=== PATIENT | female | born 1945 | race Hispanic/Latino ===

== ENCOUNTER 2018-10-04 13:37 | Inpatient (IN) | payer MEDICARE ==
[~2018-10-04] VITALS: Ht 154.9 cm; Wt 77.1 kg
[~2018-10-04 13:37] MED LIST: CARVEDILOL3.125 MG PO; CLOPIDOGREL75 MG PO; GABAPENTIN100 MG PO; ISOSORBIDE MONO20 MG PO; LISINOPRIL10 MG PO; METFORMIN HCL1000 MG PO; SIMVASTATIN40 MG PO; TIZANIDINE HCL4 MG PO; XANAX0.25 MG PO; ZOLOFT50 MG PO
--- OUTSIDE RECORDS SUMMARY | 2018-10-04 13:40 | XMS REPORT | Clinical Summary ---
Author Author [employer] Address Unknown Phone Unavailable Care Team Providers Care Manager Data Warehousing Name Role Phone Tang Marvin MD PCP Allergies Comments Active Allergy Reactions Severity Noted Date Sumatriptan Shortness Of High 11/18/2017 Breath Latex Rash Low 11/18/2017 Break Out Nefopam Rash Low 11/19/2017 Chlorzoxazone Rash Low 11/18/2017 Medications End Date Status Medication Sig Dispensed Refills Start Date Active pantoprazole (PROTONIX) Take 40 mg by 0 40 MG EC tablet mouth daily. Active glipiZIDE (GLUCOTROL) 5 Take 5 mg by 0 MG tablet mouth 2 (two) times a day before meals. Active clopidogrel (PLAVIX) 75 Take 75 mg by 0 mg tablet mouth daily. Active carvedilol (COREG) 3.125 Take 3.125 mg 0 MG tablet by mouth 2 (two) times a day with meals. Active lisinopril Take 20 mg by 0 (PRINIVIL,ZESTRIL) 20 mg mouth daily. tablet Active simvastatin (ZOCOR) 10 MG Take 10 mg by 0 tablet mouth nightly. Active insulin detemir (LEVEMIR) Inject 35 0 100 unit/mL injection Units under the skin 2 (two) times a day. 12/19/2017 carvedilol (COREG) 3.125 Take 1 tablet 60 tablet 0 11/19/201 MG tablet (3.125 mg 7 total) by mouth 2 (two) times a day for 30 days. 12/19/2017 glipiZIDE (GLUCOTROL) 5 Take 0.5 30 tablet 0 11/19/201 MG tablet tablets (2.5 7 mg total) by mouth 2 (two) times a day with meals for 30 days. 12/20/2017 lisinopril Take 1 tablet 30 tablet 0 (PRINIVIL,ZESTRIL) 5 mg (5 mg total) 8 tablet by mouth daily for 30 days. 12/20/2017 aspirin (ECOTRIN) 81 MG Take 1 tablet 30 tablet 0 enteric coated tablet (81 mg total) 8 by mouth daily for 30 days. 12/19/2017 clopidogrel (PLAVIX) 75 Take 1 tablet 30 tablet 0 mg tablet (75 mg total) 7 by mouth daily for 30 days. 12/19/2017 simvastatin (ZOCOR) 10 MG Take 1 tablet 30 tablet 0 tablet (10 mg total) 7 by mouth nightly for 30 days. 12/19/2017 clotrimazole (LOTRIMIN) 1 Apply 12 g 1 % cream topically 2 7 (two) times a day for 30 days. 02/03/2018 Discontinued ciprofloxacin (CIPRO) 500 Take 500 mg 0 MG tablet by mouth once. 02/03/2018 Discontinued ondansetron ODT (ZOFRAN Take 1 tablet 12 tablet 0 ODT) 4 MG disintegrating (4 mg total) 8 tablet by mouth every 12 (twelve) hours as needed for nausea or vomiting for up to 30 days. 02/03/2018 Discontinued ibuprofen (ADVIL,MOTRIN) Take 1 tablet 30 tablet 0 600 MG tablet (600 mg 8 total) by mouth every 8 (eight) hours as needed for mild pain for up to 30 days. 02/05/2018 dicyclomine (BENTYL) 20 Take 1 tablet 60 tablet 0 mg tablet (20 mg total) 8 by mouth 2 (two) times a day for 30 days. 03/06/2018 aspirin (ECOTRIN) 325 MG Take 1 tablet 30 tablet 0 enteric coated tablet (325 mg 8 total) by mouth daily for 30 days. Active Problems Problem Noted Date Chest pain 02/01/2018 Hypertensive emergency 11/18/2017 Encounters Care Team Description Date Type Specialty Tito Blanton MD Acute anterior epistaxis (Primary Dx); Hypertension, uncontrolled 04/21/2018 Emergency Emergency Medicine Jorden Jaquez MD [place]ud[place], Rosemary Ogonnaya, MD Chest pain, unspecified type (Primary Dx) 02/01/2018 Emergency General Internal Medicine - 02/03/2018 Kevin Cano Jr., MD Abdominal pain, unspecified abdominal location (Primary Dx) 01/06/2018 Emergency Emergency Medicine Tito Blanton MD Obud[place], Rosemary Ogonnaya, MD Hypertensive emergency (Primary Dx); Unstable angina; Hyperglycemia 11/18/2017 Hospital General Internal Medicine - Encounter 11/19/2017 after 10/03/2017 Immunizations Name Dates Previously Given Next Due FLUCELVAX QUAD PF (0.5mL 11/19/2017 syringe) Family History Medical History Relation Name Comments Heart disease Father Cancer Mother Depression Mother Heart disease Sister Relation Name Status Comments Father Mother Sister Social History Date Tobacco Use Types Packs/Day Years Used Never Smoker Smokeless Tobacco: Never Used Tobacco Cessation: Counseling Given: No Comments: DOESN'T SMOKE Alcohol Use Drinks/Week oz/Week Comments No Drank when she was younger but quit 1994 Sex Assigned at Date Recorded Not on file Industry Job Start Date Occupation Not on file Not on file Not on file Travel End Travel History Travel Start No recent travel history available. Last Filed Vital Signs Time Taken Vital Sign Reading 04/21/2018 3:45 AM CDT Blood Pressure 151/68 04/21/2018 3:45 AM CDT Pulse 56 04/21/2018 3:45 AM CDT Temperature 36.4 C (97.5 F) 04/21/2018 3:45 AM CDT Respiratory Rate 16 04/21/2018 3:45 AM CDT Oxygen Saturation 98% - Inhaled Oxygen - Concentration 04/21/2018 2:20 AM CDT Weight 74.8 kg (165 lb) 04/21/2018 2:20 AM CDT Height 154.9 cm (5' 1") 04/21/2018 2:20 AM CDT Body Mass Index 31.18 Plan of Treatment Health Maintenance Due Date Last Done Comments BREAST CANCER SCREENING 1996 COLON CANCER SCREENING 1996 SHINGRIX VACCINE (1 of 2) 1996 ZOSTER VACCINE 2006 PNEUMOCOCCAL 2011 POLYSACCHARIDE VACCINE AGE 65 AND OVER PNEUMOCOCCAL-13 2011 INFLUENZA VACCINE 06/20/2018 11/19/2017 Implants Device Identifier Shelf Expiration Date Model / Serial / Lot Implanted Type Area Manufactur er Cardiac Pacemakers And Related Cardiac Products Pacemakers and Related Products Procedures Comments Procedure Name Priority Date/Time Associated Diagnosis XR CHEST 1 VW PORTABLE STAT 04/21/2018 3:12 AM CDT ZZESTIMATED GFR STAT 04/21/2018 2:56 AM CDT BASIC METABOLIC PANEL STAT 04/21/2018 2:56 AM CDT PARTIAL THROMBOPLASTIN STAT 04/21/2018 TIME (PTT) 2:56 AM CDT PROTHROMBIN TIME WITH INR STAT 04/21/2018 2:56 AM CDT HC COMPLETE BLD COUNT STAT 04/21/2018 W/AUTO DIFF 2:56 AM CDT D-DIMER STAT 02/03/2018 6:01 PM CDT POC GLUCOSE Routine 02/03/2018 4:23 PM CDT POC GLUCOSE Routine 02/03/2018 10:59 AM CDT POC GLUCOSE Routine 02/03/2018 6:14 AM CDT TROPONIN Timed 02/03/2018 4:34 AM CDT ZZESTIMATED GFR Timed 02/03/2018 4:34 AM CDT THYROID STIMULATING Timed 02/03/2018 HORMONE 4:34 AM CDT T3, FREE Timed 02/03/2018 4:34 AM CDT PROTHROMBIN TIME WITH INR Timed 02/03/2018 4:34 AM CDT PARTIAL THROMBOPLASTIN Timed 02/03/2018 TIME (PTT) 4:34 AM CDT MAGNESIUM LEVEL Timed 02/03/2018 4:34 AM CDT LIPID PANEL Timed 02/03/2018 4:34 AM CDT HEMOGLOBIN A1C Timed 02/03/2018 4:34 AM CDT COMPREHENSIVE METABOLIC Timed 02/03/2018 PANEL 4:34 AM CDT HC COMPLETE BLD COUNT Timed 02/03/2018 W/AUTO DIFF 4:34 AM CDT B NATRIURETIC PEPTIDE Timed 02/03/2018 4:34 AM CDT POC GLUCOSE Routine 02/02/2018 9:04 PM CDT NM MYOCARDIAL PERFUSION Routine 02/02/2018 REST STRESS 1 DAY 6:39 PM CDT CV STRESS TEST NUCLEAR Routine 02/02/2018 CARDIO 6:39 PM CDT POC GLUCOSE Routine 02/02/2018 4:27 PM CDT ECHOCARDIOGRAM 2D Routine 02/02/2018 COMPLETE W MMODE SPECTRAL 12:44 PM CDT COLOR DOPPLER ([id number]) POC GLUCOSE Routine 02/02/2018 11:56 AM CDT TROPONIN Timed 02/02/2018 9:42 AM CDT POC GLUCOSE Routine 02/02/2018 8:13 AM CDT TROPONIN Timed 02/02/2018 3:45 AM CDT ECG 12-LEAD STAT 02/02/2018 3:15 AM CDT XR CHEST 2 VW STAT 02/01/2018 9:55 PM CDT ECG ED PRELIMINARY Routine 02/01/2018 INTERPRETATION 9:08 PM CDT ZZESTIMATED GFR STAT 02/01/2018 9:06 PM CDT B NATRIURETIC PEPTIDE STAT 02/01/2018 9:06 PM CDT TROPONIN STAT 02/01/2018 9:06 PM CDT COMPREHENSIVE METABOLIC STAT 02/01/2018 PANEL 9:06 PM CDT HC COMPLETE BLD COUNT STAT 02/01/2018 W/AUTO DIFF 9:06 PM CDT ECG 12-LEAD STAT 02/01/2018 8:[address] ABDOMEN PELVIS W STAT 01/06/2018 CONTRAST 5:34 AM FIELD SERVICE TECHNICIAN ZZESTIMATED GFR STAT 01/06/2018 3:40 AM FIELD SERVICE TECHNICIAN HC COMPLETE BLD COUNT STAT 01/06/2018 W/AUTO DIFF 3:40 AM FIELD SERVICE TECHNICIAN LIPASE LEVEL STAT 01/06/2018 3:40 AM FIELD SERVICE TECHNICIAN COMPREHENSIVE METABOLIC STAT 01/06/2018 PANEL 3:40 AM FIELD SERVICE TECHNICIAN URINALYSIS SCREEN AND STAT 01/06/2018 MICROSCOPY, WITH REFLEX 3:30 AM FIELD SERVICE TECHNICIAN TO CULTURE URINE CULTURE STAT 01/06/2018 3:05 AM FIELD SERVICE TECHNICIAN POC GLUCOSE Routine 11/19/2017 4:47 PM FIELD SERVICE TECHNICIAN POC GLUCOSE Routine 11/19/2017 11:17 AM FIELD SERVICE TECHNICIAN POC GLUCOSE Routine 11/19/2017 7:26 AM FIELD SERVICE TECHNICIAN ZZESTIMATED GFR Timed 11/19/2017 7:04 AM FIELD SERVICE TECHNICIAN COMPREHENSIVE METABOLIC Timed 11/19/2017 PANEL 7:04 AM FIELD SERVICE TECHNICIAN HC COMPLETE BLD COUNT Timed 11/19/2017 W/AUTO DIFF 7:04 AM FIELD SERVICE TECHNICIAN TROPONIN Timed 11/19/2017 7:04 AM FIELD SERVICE TECHNICIAN ECG 12-LEAD Routine 11/19/2017 6:11 AM FIELD SERVICE TECHNICIAN TROPONIN Timed 11/19/2017 1:56 AM FIELD SERVICE TECHNICIAN ECG 12-LEAD Routine 11/18/2017 11:22 PM FIELD SERVICE TECHNICIAN TROPONIN Timed 11/18/2017 8:50 PM FIELD SERVICE TECHNICIAN ECG ED PRELIMINARY Routine 11/18/2017 INTERPRETATION 8:27 PM FIELD SERVICE TECHNICIAN ECG 12-LEAD Routine 11/18/2017 7:41 PM FIELD SERVICE TECHNICIAN ECHOCARDIOGRAM 2D Routine 11/18/2017 COMPLETE W MMODE SPECTRAL 5:17 PM FIELD SERVICE TECHNICIAN COLOR DOPPLER ([id number]) POC GLUCOSE Routine 11/18/2017 4:35 PM FIELD SERVICE TECHNICIAN POC GLUCOSE Routine 11/18/2017 11:31 AM FIELD SERVICE TECHNICIAN POC GLUCOSE Routine 11/18/2017 7:13 AM FIELD SERVICE TECHNICIAN LIPID PANEL Routine 11/18/2017 6:00 AM FIELD SERVICE TECHNICIAN TROPONIN Timed 11/18/2017 6:00 AM FIELD SERVICE TECHNICIAN POC GLUCOSE Routine 11/18/2017 5:13 AM FIELD SERVICE TECHNICIAN CT ANGIOGRAM CHEST STAT 11/18/2017 ABDOMEN PELVIS W AND OR 3:36 AM FIELD SERVICE TECHNICIAN WITHOUT CONTRAST CT HEAD WO CONTRAST STAT 11/18/2017 3:23 AM FIELD SERVICE TECHNICIAN XR CHEST 2 VW STAT 11/18/2017 1:17 AM FIELD SERVICE TECHNICIAN HEMOGLOBIN A1C Routine 11/18/2017 1:07 AM FIELD SERVICE TECHNICIAN ZZESTIMATED GFR STAT 11/18/2017 1:07 AM FIELD SERVICE TECHNICIAN B NATRIURETIC PEPTIDE STAT 11/18/2017 1:07 AM FIELD SERVICE TECHNICIAN TROPONIN STAT 11/18/2017 1:07 AM FIELD SERVICE TECHNICIAN CREATINE KINASE, TOTAL STAT 11/18/2017 (CPK) 1:07 AM FIELD SERVICE TECHNICIAN COMPREHENSIVE METABOLIC STAT 11/18/2017 PANEL 1:07 AM FIELD SERVICE TECHNICIAN PROTHROMBIN TIME WITH INR STAT 11/18/2017 1:07 AM FIELD SERVICE TECHNICIAN HC COMPLETE BLD COUNT STAT 11/18/2017 W/AUTO DIFF 1:07 AM FIELD SERVICE TECHNICIAN ECG 12-LEAD STAT 11/18/2017 12:14 AM FIELD SERVICE TECHNICIAN after 10/03/2017 Results * XR Chest 1 Vw Portable (04/21/2018 3:12 AM CDT) Narrative Performed At Examination:XR CHEST 1 VW PORTABLE RADIANT Clinical History:SHORTNESS OF BREATH Comparison: None. Technique: Single frontal view of the chest is obtained. Findings: The lungs are free of infiltrate. The heart size is in the upper limits of normal. No pleural effusion is seen. Left transvenous visit device is stable. No pneumothorax is seen. Impression: No active cardiopulmonary disease identified. [facility]-[id number] Procedure Note Hm Interface, Radiology Results Incoming - 04/21/2018 3:17 AM CDT Examination: XR CHEST 1 VW PORTABLE Clinical History: SHORTNESS OF BREATH Comparison: None. Technique: Single frontal view of the chest is obtained. Findings: The lungs are free of infiltrate. The heart size is in the upper limits of normal. No pleural effusion is seen. Left transvenous visit device is stable. No pneumothorax is seen. Impression: No active cardiopulmonary disease identified. [facility]-[id number] Performing Organization Address City/[facility] Phone Number [facility] [address] [place] [address] * Estimated GFR (04/21/2018 2:56 AM CDT) Only the most recent of 6 results within the time period is included. GFR Non Af Amer 49 (A) mL/min/1.73 m2 [facility] DEPARTMENT OF PATHOLOGY AND GENOMIC MEDICINE GFR Af Amer 59 (A) mL/min/1.73 m2 [facility] DEPARTMENT OF Comment: PATHOLOGY AND Chronic kidney disease: <60 GENOMIC MEDICINE mL/min/1.73m2 Kidney failure: <15 mL/min/1.73m2 The estimated GFR is calculated from the IDMS-traceable Modification of Diet in Renal Disease Equation. The accuracy of the calculation is poor when the creatinine is normal. Calculated values >90 mL/min/1.73m2 are not reported. This equation has not been validated in children (<18 years), women, the elderly (>70 years), or ethnic groups other than Caucasians and Americans. Specimen Plasma specimen Performing Organization Address City/[facility] [place] [address] PATHOLOGY AND [facility] * Partial thromboplastin time, activated (04/21/2018 2:56 AM CDT) Only the most recent of 2 results within the time period is included. PTT 28.0 23.0 - 36.0 sec [facility] DEPARTMENT OF Comment: PATHOLOGY AND PTT therapeutic range for GENOMIC MEDICINE unfractionated heparin is 61.0-112.0 seconds which corresponds to Anti-Xa 0.3-0.7 U/ml. Note:Change in Panic Value The PTT Panic Value is changing from 110 sec. to 100 sec. due to new instrumentation and reagents. Correlation studies have been performed to validate this result. Specimen Blood Performing Organization Address [facility] [place] [address] PATHOLOGY AND [facility] * Prothrombin time with INR (04/21/2018 2:56 AM CDT) Only the most recent of 3 results within the time period is included. Prothrombin time 12.3 12.0 - 15.0 sec [facility] DEPARTMENT OF PATHOLOGY AND [facility] INR 0.91 (L) 0.92 - 1.12 [facility] DEPARTMENT OF Comment: PATHOLOGY AND For patients on anticoagulant GENOMIC MEDICINE therapy, reference ranges below: Indication: INR Value Treatment of Venous Thrombosis, 2.0-3.0 pulmonary emboli, or prophylaxis of a venous thrombosis, or systemic emboli. High dose, high risk patients 3.0-4.5 with mechanical valves. NOTE:INR values over 3.0 are sometimes associated with gastrointestinal hemorrhage, especially values over 4.0. Specimen Blood Performing Organization Address City/[facility] [place] [address] PATHOLOGY AND [facility] * CBC with platelet and differential (04/21/2018 2:56 AM CDT) Only the most recent of 6 results within the time period is included. WBC 8.5 4.2 - 11.0 k/uL [facility] DEPARTMENT OF PATHOLOGY AND GENOMIC MEDICINE RBC 4.30 4.04 - 5.86 m/uL [facility] DEPARTMENT OF PATHOLOGY AND GENOMIC MEDICINE HGB 12.9 11.5 - 15.3 g/dL [facility] DEPARTMENT OF PATHOLOGY AND GENOMIC MEDICINE HCT 37.8 34.0 - 45.0 % [facility] DEPARTMENT OF PATHOLOGY AND GENOMIC MEDICINE MCV 87.9 80.0 - 98.0 fL [facility] DEPARTMENT OF PATHOLOGY AND GENOMIC MEDICINE MCH 30.0 27.0 - 34.0 pg [facility] DEPARTMENT OF PATHOLOGY AND GENOMIC MEDICINE MCHC 34.1 31.5 - 36.5 g/dL [facility] DEPARTMENT OF PATHOLOGY AND GENOMIC MEDICINE RDW - SD 39.0 37.0 - 51.0 fL [facility] DEPARTMENT OF PATHOLOGY AND GENOMIC MEDICINE MPV 10.9 (H) 7.4 - 10.4 fL [facility] DEPARTMENT OF PATHOLOGY AND GENOMIC MEDICINE Platelet count 278 150 - 400 k/uL [facility] DEPARTMENT OF PATHOLOGY AND GENOMIC MEDICINE Nucleated RBC 0.00 /100 WBC [facility] DEPARTMENT OF PATHOLOGY AND GENOMIC MEDICINE Neutrophils 66.4 (H) 36.0 - 66.0 % [facility] DEPARTMENT OF PATHOLOGY AND GENOMIC MEDICINE Lymphocytes 23.7 (L) 24.0 - 44.0 % [facility] DEPARTMENT OF PATHOLOGY AND GENOMIC MEDICINE Monocytes 6.8 (H) 0.0 - 6.0 % [facility] DEPARTMENT OF PATHOLOGY AND GENOMIC MEDICINE Eosinophils 2.1 0.0 - 6.0 % [facility] DEPARTMENT OF PATHOLOGY AND GENOMIC MEDICINE Basophils 0.8 0.0 - 1.2 % [facility] DEPARTMENT OF PATHOLOGY AND GENOMIC MEDICINE Immature granulocytes 0.2 0.0 - 1.0 % [facility] DEPARTMENT OF PATHOLOGY AND GENOMIC MEDICINE Specimen Blood Performing Organization Address City/State/Zipcode Phone Number [place] [address] [place] [address] PATHOLOGY AND GENOMIC MEDICINE * Basic metabolic panel (04/21/2018 2:56 AM CDT) Sodium 132 (L) 135 - 150 mEq/L [facility] DEPARTMENT OF PATHOLOGY AND GENOMIC MEDICINE Potassium 4.2 3.5 - 5.0 mEq/L [facility] DEPARTMENT OF PATHOLOGY AND GENOMIC MEDICINE Chloride 97 (L) 100 - 109 mEq/L [facility] DEPARTMENT OF PATHOLOGY AND GENOMIC MEDICINE CO2 25 24 - 32 mmol/L [facility] DEPARTMENT OF PATHOLOGY AND GENOMIC MEDICINE Anion gap 10@ANIO 7 - 15 mEq/L [facility] DEPARTMENT OF PATHOLOGY AND GENOMIC MEDICINE BUN 24 (H) 7 - 18 mg/dL [facility] DEPARTMENT OF PATHOLOGY AND GENOMIC MEDICINE Creatinine 1.1 0.8 - 1.5 mg/dL [facility] DEPARTMENT OF PATHOLOGY AND GENOMIC MEDICINE Glucose 453 (HH) 65 - 100 mg/dL [facility] DEPARTMENT OF Comment: PATHOLOGY AND Results called to and read [facility] back by MARCELINA BAIG RN ER AT 03:[id number] BY BALWINDER. Calcium 8.8 8.6 - 10.7 mg/dL [facility] DEPARTMENT OF PATHOLOGY AND GENOMIC MEDICINE Specimen Plasma specimen Performing Organization Address [facility] Phone Number [facility] [address] [place] [address] PATHOLOGY AND GENOMIC MEDICINE * D-dimer (02/03/2018 6:01 PM CDT) D-dimer 0.36 0.00 - 0.40 ug/mL FEU [facility] DEPARTMENT OF Comment: PATHOLOGY AND Units are ug/ml [facility] Equivalent Unit. When combined with low clinical probability, D-dimer results of less than 0.5 ug/ml FEU have a good negativepredictive value in excluding PE or DVT. For D-dimer results greater than 0.5ug/ml FEU further testing is indicated if PE or DVT is suspectedclinically. Elevated D-dimer results have been reported in DVT, PE, and DIC cases and may indicate the presence of a clot. D-dimer results may be elevated due to old age, , inflammatory diseases, trauma, post-operative states, sepsis, and malignancies. Specimen Blood Performing Organization Address [facility] Phone Number [facility] [address] [place] [address] PATHOLOGY AND GENOMIC MEDICINE * POC glucose (02/03/2018 4:23 PM CDT) Only the most recent of 14 results within the time period is included. POC glucose 174 (H) 65 - 100 mg/dL [facility] DEPARTMENT OF Comment: PATHOLOGY AND Meter ID: [id number] GENOMIC MEDICINE Model And Mold Maker Plaster: Jenifer Sanchez Performing Organization Address City/State/Zipcode Phone Number [facility] DEPARTMENT OF [address] [place] [address] PATHOLOGY AND [facility] * Troponin (02/03/2018 4:34 AM CDT) Only the most recent of 9 results within the time period is included. Troponin <0.01 0.00 - 0.60 ng/mL [facility] DEPARTMENT OF Comment: PATHOLOGY AND 0.11 - 1.49 GENOMIC MEDICINE ng/mlMay indicate increased risk of acute coronary syndrome. >=1.5 ng/ml Consistent with acute myocardial infarction. The diagnostic value of a single normal or non-diagnostic result is questionable.Serial samples at 2-6 hour intervals are required to rule out acute myocardial injury. Specimen Plasma specimen Performing Organization Address City/[facility] [place] [address] PATHOLOGY AND GENOMIC MEDICINE * T3, free (02/03/2018 4:34 AM CDT) T3, free 2.55 2.18 - 3.98 pmol/L [facility] PATHOLOGY AND [facility] Specimen Plasma specimen Performing Organization Address [facility] [place] [address] PATHOLOGY AND [facility] * Thyroid stimulating hormone (02/03/2018 4:34 AM CDT) TSH 0.96 0.38 - 4.82 uIU/mL [facility] PATHOLOGY AND [facility] Specimen Plasma specimen Performing Organization Address [facility] [address] PATHOLOGY AND [facility] * B natriuretic peptide (02/03/2018 4:34 AM CDT) Only the most recent of 3 results within the time period is included. BNP 28 0 - 100 pg/mL [facility] OF PATHOLOGY AND GENOMIC MEDICINE Specimen Blood Performing Organization Address [facility] [place] [address] PATHOLOGY AND [facility] * Magnesium level (02/03/2018 4:34 AM CDT) Magnesium 1.90 1.60 - 2.40 mg/dL [facility] PATHOLOGY AND [facility]ICINE Specimen Plasma specimen Performing Organization Address [facility] [place] [address] PATHOLOGY AND [facility] * Hemoglobin A1c (02/03/2018 4:34 AM CDT) Only the most recent of 2 results within the time period is included. Hemoglobin A1C 10.2 (H) 4.0 - 6.0 % [facility] DEPARTMENT OF Comment: PATHOLOGY AND [facility] Less than 6% - Goal of therapy for Type II Diabetes Less than 7%-Goal of therapy for Type I Diabetes Less than 8%-Accepta ble control for Type I or Type II Diabetes Greater than 8%-Unacceptabl e control; action indicated. ([id number]) Specimen Blood Performing Organization Address City/[facility]/Zipcode Phone Number [facility] [address] [place] [address] PATHOLOGY AND [facility] * Lipid panel (02/03/2018 4:34 AM CDT) Only the most recent of 2 results within the time period is included. Cholesterol 194 120 - 200 mg/dL [facility] DEPARTMENT OF PATHOLOGY AND [facility] Triglycerides 131 50 - 150 mg/dL [facility] DEPARTMENT OF PATHOLOGY AND [facility] HDL cholesterol 78 (H) 40 - 60 mg/dL [facility] OF PATHOLOGY AND [facility]IC[facility] LDL cholesterol 108Comment: Result obtained by mg/dL [facility] DEPARTMENT OF direct LDL measurement [facility] AND [facility] Specimen Plasma specimen Performing Organization Address City/[facility] [place] [address] PATHOLOGY AND [facility] * Comprehensive metabolic panel (02/03/2018 4:34 AM CDT) Only the most recent of 5 results within the time period is included. Sodium 138 135 - 150 mEq/L [facility] DEPARTMENT OF PATHOLOGY AND [facility]IC[facility] Potassium 4.1 3.5 - 5.0 mEq/L [facility] DEPARTMENT OF PATHOLOGY AND [facility] Chloride 104 100 - 109 mEq/L [facility] DEPARTMENT OF PATHOLOGY AND [facility] CO2 26 24 - 32 mmol/L [facility] DEPARTMENT OF PATHOLOGY AND [facility] Anion gap 8 7 - 15 mEq/L [facility] DEPARTMENT OF Comment: PATHOLOGY AND Starting from February [facility] , anion gap calculation no longer incorporates potassium. Please note the change. BUN 19 (H) 7 - 18 mg/dL [facility] DEPARTMENT OF PATHOLOGY AND [facility] Creatinine 0.7 (L) 0.8 - 1.5 mg/dL [facility] DEPARTMENT OF PATHOLOGY AND [facility] Glucose 154 (H) 65 - 100 mg/dL [facility] DEPARTMENT OF PATHOLOGY AND GENOMIC MEDICINE Calcium 9.0 8.6 - 10.7 mg/dL [facility] DEPARTMENT OF PATHOLOGY AND GENOMIC MEDICINE Protein 6.8 6.3 - 8.2 g/dL [facility] DEPARTMENT OF PATHOLOGY AND GENOMIC MEDICINE Albumin 3.2 3.2 - 5.0 g/dL [facility] DEPARTMENT OF PATHOLOGY AND GENOMIC MEDICINE A/G ratio 0.9 0.7 - 3.8 [facility] DEPARTMENT OF PATHOLOGY AND GENOMIC MEDICINE Alkaline phosphatase 137 (H) 30 - 120 U/L [facility] DEPARTMENT OF PATHOLOGY AND GENOMIC MEDICINE AST 12 (L) 15 - 37 U/L [facility] DEPARTMENT OF PATHOLOGY AND GENOMIC MEDICINE ALT 25 (L) 30 - 65 U/L [facility] DEPARTMENT OF PATHOLOGY AND GENOMIC MEDICINE Total bilirubin 0.4 0.2 - 1.2 mg/dL [facility] DEPARTMENT OF PATHOLOGY AND GENOMIC MEDICINE Specimen Plasma specimen Performing Organization Address City/[facility] Phone Number [place] [address] [place] [address] PATHOLOGY AND GENOMIC MEDICINE * CV stress test (02/02/2018 6:39 PM CDT) Resting HR 62 [facility] Resting BP 127 [facility] Peak MET Achieved 1.0 [facility] Protocol Name KELVIN [facility] Time in Exercise Phase 00:01:07 [facility] Max Systolic BP 184 [facility] Max Diastolic BP 79 [facility] Max Heart Rate 86 [facility] Max Predicted Heart Rate 149 [facility] Target HR Formula (220 - Age)*100% [facility] Test Indication Syncope [facility] Arrhy During Ex none [facility] ECG Interp Before EX Normal [facility] ECG Interp During Ex none [facility] Ex Summary Comment Normal stress test [facility] Chest Pain Statement none [facility] Overall HR Response to appropriate [facility] Exercise Overall BP Response To normal resting BP - [facility] Exercise appropriate response Reason for Termination Protocol completed [facility] Stress Test Impression - Performing Organization Address City/State/[facility] Phone Number [facility] [address] [place] [address] * Myocardial perfusion (02/02/2018 6:39 PM CDT) Target HR 126.65 bpm [facility] Resting HR 62 BPM [facility] Resting BP 127/56 mmHg [facility] Post peak HR 86 bpm [facility] Percent HR 67.90 % [facility] Post peak BP 184/79 mmHg [facility] Exercise duration (min) 2 min [facility] Estimated workload 1.0 METS [facility] Narrative Performed At [facility] Probably normal left ventricular perfusion. Probably normal left ventricular perfusion. No chest pain No exercise induced ST-T changes. No arrhythmias with exercise. Normal heart rate and BP response. Myoview report Breastattenuation artifact No conclusive significant large reversible Ischemia Normal wall motion EF 70% Performing Organization Address City/State/Zipcode Phone Number [facility] [address] [place] [address] * Echocardiogram complete w contrast and 3D if needed (02/02/2018 12:44 PM CDT) Velocity Ratio (V1/V2) 0.77 m/s [facility] IVS,d 0.83 0.6 - 1.2 cm [facility] EF 65.65 % [facility] LVPWD,d 0.79 cm [facility] AoV Mean PG 4.86 mmHg [facility] AV LVOT peak gradient 4.85 mmHg [facility] MV mean gradient 2.06 mmHg [facility] MV valve area p 1/2 3.52 cm2 [facility] method PV Pk Grad 6.54 mmHg [facility] E/A ratio 1.23 [facility] E wave decelartion time 215.55 msec [facility] LVOT Diam,S 1.88 cm [facility] LVOT area 2.77 cm2 [facility] LVOT Vmax 1.20 m/s [facility] LVOT VTI 0.26 m [facility] AoV Peak PG 8.52 mmHg [facility] MV Peak E Joel 1.03 m/s [facility] MV stenosis pressure 1/2 62.51 ms [facility] time MV Peak A Joel 0.84 m/s [facility] Ao Root Diameter 2.59 cm [facility] AoV Area, Vmax 2.09 cm2 [facility] AoV Area, VTI 2.15 cm2 [facility] AoV Vmax 1.56 m/s [facility] IVS/LVPW,2D 1.06 [facility] Left Atrium Dimension 3.00 cm [facility] Anterior LV,d 4.64 cm [facility] LV,s 2.97 cm [facility] PV VMAX 1.28 m/s [facility] TR Vpeak 2.83 mm/s [facility] MV E A ratio 1.22 mmHg [facility] TR pk grad 32.01 mmHg [facility] MR peak grad 4.33 mmHg [facility] Ao Root Diameter 2.59 cm [facility] LV SYS VOL 34.10 ml [facility] LV HERNANDEZ VOL 99.27 ml [facility] LV SV Teich 2D 65.17 ml [facility] LV Vol s Teich PSAX 34.10 ml [facility] LVOT CO 4.50 l/min [facility] LVOT HR for LVOT CO 62.75 bpm [facility] MV Vmax 1.04 m [facility] MV VTI Tips 0.32 m [facility] AoV Vmn 1.05 [facility] IVS s 2D 1.24 [facility] LV FS Cube 2D 36.01 [facility] LV FS Teich 2D 36.01 [facility] AoV VTI 0.33 m [facility] LV EF,2D 73.80 % [facility] MV AE ratio 0.82 [facility] LVOT Vmn 0.81 [facility] Aov area Vmn 2.14 cm2 [facility] LVOT mean grad 2.82 mmHg [facility] MAX Pred HR 148.73 [facility] 85 of MPHR 126.42 [facility] Calc MPHR 148.73 bpm [facility] IVS pct thck PLAX 48.96 % [facility] LV SV Cube 2D 73.66 ml [facility] LV vol d cube 2D 99.81 ml [facility] LV vol s cube 2D 26.15 ml [facility] LVPW pct thck PLAX 131.74 % [facility] LVPW s PLAX 1.83 cm [facility] MV Decel slope 4.77 m/s2 [facility] Pred Exer Dur R1 6.69 [facility] Pred METS R1 5.44 [facility] Narrative Performed At [facility] The left ventricle chamber size is normal. Left Ventricular ejection fraction is 60 - 65%. Right ventricular size is normal. The mitral valve appears thickened. The anterior leaflet is mild thickened and/or calcified. There is a mild prolapse of the mitral valve. Trace mitral valve regurgitation Performing Organization Address City/State/Zipcode Phone Number [facility] [address] [place] [address] * ECG 12 lead (02/02/2018 3:15 AM CDT) Only the most recent of 6 results within the time period is included. Ventricular rate 54 [facility] Atrial rate 54 [facility] IA interval 138 [facility] QRSD interval 108 [facility] QT interval 482 [facility] QTC interval 457 [facility] P axis 1 54 [facility] QRS axis 1 54 [facility] T wave axis 24 [facility] EKG impression atrial-sensed [facility] ventricular-paced complexes-Prolonged QT-In automated comparison with ECG of 01-FEB-2018 20:43,-Electronic ventricular pacemaker has replaced Sinus rhythm-Vent. rate has decreased BY26 BPM- Performing Organization Address [facility] Phone Number [facility] [address] [place] [address] * XR Chest 2 Vw (02/01/2018 9:55 PM CDT) Only the most recent of 2 results within the time period is included. Narrative Performed At EXAMINATION:XR CHEST 2 VW [facility] CLINICAL HISTORY:Chest Pain COMPARISON:11/18/2017 IMPRESSION: Cardiomediastinal silhouette is within normal limits. Left-sided cardiac device is in place. No consolidations, effusions, or pneumothorax. No acute osseous abnormalities. [facility]-[id number] Procedure Note Hm Interface, Radiology Results Incoming - 02/01/2018 10:01 PM CDT EXAMINATION: XR CHEST 2 VW CLINICAL HISTORY: Chest Pain COMPARISON: 11/18/2017 IMPRESSION: Cardiomediastinal silhouette is within normal limits. Left-sided cardiac device is in place. No consolidations, effusions, or pneumothorax. No acute osseous abnormalities. [facility]-[id number] Performing Organization Address [facility] Phone Number [facility] [address] [place] [address] * ECG ED Preliminary Interpretation - NOT AN ORDER (02/01/2018 9:08 PM CDT) Only the most recent of 2 results within the time period is included. Narrative Performed At Jorden Jaquez MD 02/01/2018 10:09 PM ECG ED Preliminary Interpretation - Not an Order Performed by: JORDEN JAQUEZ Authorized by: JORDEN JAQUEZ ECG reviewed by ED Physician in the absence of a vp celebrity services: yes Interpretation: Interpretation: abnormal Rate: ECG rate:80 ECG rate assessment: normal Rhythm: Rhythm: sinus rhythm Ectopy: Ectopy: PVCs PVCs:Frequent QRS: QRS axis:Normal QRS intervals:Normal Conduction: Conduction: normal ST segments: ST segments:Normal T waves: T waves: normal Other findings: Other findings comment:Demand pacemaker with paced beats * CT Abdomen Pelvis W Contrast (01/06/2018 5:34 AM FIELD SERVICE TECHNICIAN) Narrative Performed At EXAMINATION:CT ABDOMEN PELVIS W CONTRAST [facility] CLINICAL HISTORY:abd pain TECHNIQUE: Multiple axial images of the abdomen and pelvis were obtained following intravenous administration of iodinated contrast. Sagittal and coronal computerized reformatted images were also obtained. CT imaging was performed with iterative reconstruction technique and/or automated exposure control to reduce radiation dose. COMPARISON:11/18/2017 IMPRESSION: In the right lower lobe, there is a 3 mm nodule. Lead from cardiac device terminates in the right heart. Patient is status post cholecystectomy. Liver demonstrates focal fatty infiltration along the falciform ligament. Spleen, pancreas, adrenal glands are normal. Simple cyst is seen of interpolar region of the right kidney. Left kidney is normal. No hydronephrosis or hydroureter. Bladder is normal. No free intraperitoneal fluid or air. Atherosclerotic vascular calcifications are seen. Diverticulosis is seen without diverticulitis. Appendix is normal. No gastrointestinal tract obstruction. No acute osseous abnormalities. CONCLUSION: No emergent findings. [facility]-[id number] Procedure Note Interface, Radiology Results Incoming - 01/06/2018 6:07 AM FIELD SERVICE TECHNICIAN EXAMINATION: CT ABDOMEN PELVIS W CONTRAST CLINICAL HISTORY: abd pain TECHNIQUE: Multiple axial images of the abdomen and pelvis were obtained following intravenous administration of iodinated contrast. Sagittal and coronal computerized reformatted images were also obtained. CT imaging was performed with iterative reconstruction technique and/or automated exposure control to reduce radiation dose. COMPARISON: 11/18/2017 IMPRESSION: In the right lower lobe, there is a 3 mm nodule. Lead from cardiac device terminates in the right heart. Patient is status post cholecystectomy. Liver demonstrates focal fatty infiltration along the falciform ligament. Spleen, pancreas, adrenal glands are normal. Simple cyst is seen of interpolar region of the right kidney. Left kidney is normal. No hydronephrosis or hydroureter. Bladder is normal. No free intraperitoneal fluid or air. Atherosclerotic vascular calcifications are seen. Diverticulosis is seen without diverticulitis. Appendix is normal. No gastrointestinal tract obstruction. No acute osseous abnormalities. CONCLUSION: No emergent findings. [facility]-[id number] Performing Organization Address City/State/Zipcode Phone Number [facility] [address] [place] [address] * Lipase level (01/06/2018 3:40 AM FIELD SERVICE TECHNICIAN) Lipase 121 65 - 230 U/L [facility] DEPARTMENT OF PATHOLOGY AND GENOMIC MEDICINE Specimen Plasma specimen Performing Organization Address City/[facility] Phone Number [address] [place] [address] PATHOLOGY AND GENOMIC MEDICINE * Urinalysis screen and microscopy, with reflex to culture (01/06/2018 3:30 AM FIELD SERVICE TECHNICIAN) Specimen site Clean catch [facility] DEPARTMENT OF PATHOLOGY AND GENOMIC MEDICINE Color, UA Yellow [facility] DEPARTMENT OF PATHOLOGY AND GENOMIC MEDICINE Appearance, UA Clear [facility] DEPARTMENT OF PATHOLOGY AND GENOMIC MEDICINE Specific gravity, UA 1.021 1.001 - 1.035 [facility] DEPARTMENT OF PATHOLOGY AND GENOMIC MEDICINE pH, UA 5.0 5.0 - 8.5 [facility] DEPARTMENT OF PATHOLOGY AND GENOMIC MEDICINE Protein, UA Negative Negative [facility] DEPARTMENT OF PATHOLOGY AND GENOMIC MEDICINE Glucose, UA Negative Negative [facility] DEPARTMENT OF PATHOLOGY AND GENOMIC MEDICINE Ketones, UA Negative Negative [facility] DEPARTMENT OF PATHOLOGY AND GENOMIC MEDICINE Bilirubin, UA Negative Negative [facility] DEPARTMENT OF PATHOLOGY AND GENOMIC MEDICINE Blood, UA Negative Negative [facility] DEPARTMENT OF PATHOLOGY AND GENOMIC MEDICINE Nitrite, UA Negative Negative [facility] DEPARTMENT OF PATHOLOGY AND GENOMIC MEDICINE Urobilinogen, UA Negative <2.0 [facility] DEPARTMENT OF PATHOLOGY AND GENOMIC MEDICINE Leukocyte esterase, UA Negative Negative [facility] DEPARTMENT OF PATHOLOGY AND GENOMIC MEDICINE Epithelial cells, UA Few /HPF [facility] DEPARTMENT OF PATHOLOGY AND GENOMIC MEDICINE WBC, UA 3 0 - 5 /HPF [facility] DEPARTMENT OF PATHOLOGY AND GENOMIC MEDICINE RBC, UA 1 0 - 5 /HPF [facility] DEPARTMENT OF PATHOLOGY AND GENOMIC MEDICINE Bacteria, UA None seen None seen [facility] DEPARTMENT OF PATHOLOGY AND GENOMIC MEDICINE Yeast, UA None seen [facility] DEPARTMENT OF PATHOLOGY AND GENOMIC MEDICINE Yeast with pseudohyphae, None seen [facility] DEPARTMENT OF PATHOLOGY AND GENOMIC MEDICINE Specimen Urine Performing Organization Address City/[facility]/Zipcode Phone Number [facility] [address] [facility] [place] [address] PATHOLOGY AND GENOMIC MEDICINE * Urine culture (01/06/2018 3:05 AM FIELD SERVICE TECHNICIAN) Urine culture SEE COMMENTComment: [facility] DEPARTMENT OF Bacteriuria screen negative. PATHOLOGY AND GENOMIC MEDICINE Performing Organization Address City/State/Zipcode Phone Number [facility] DEPARTMENT OF [address] [place] [address] PATHOLOGY AND GENOMIC MEDICINE * Echocardiogram complete w contrast and 3D if needed (11/18/2017 5:17 PM FIELD SERVICE TECHNICIAN) Velocity Ratio (V1/V2) 0.64 m/s [facility] IVS,d 1.30 (A) 0.6 - 1.2 cm [facility] EF 54.69 % [facility] LVPWD,d 1.17 cm [facility] AoV Mean PG 3.74 mmHg [facility] AV LVOT peak gradient 2.81 mmHg [facility] MV valve area p 1/2 5.32 cm2 [facility] method PV Pk Grad 3.70 mmHg [facility] E/A ratio 0.86 [facility] E wave decelartion time 172.25 msec [facility] LVOT Diam,S 1.82 cm [facility] LVOT area 2.60 cm2 [facility] LVOT Vmax 0.84 m/s [facility] LVOT VTI 0.19 m [facility] AoV Peak PG 7.01 mmHg [facility] MV Peak E Joel 0.62 m/s [facility] MV stenosis pressure 1/2 41.38 ms [facility] time MV Peak A Joel 0.72 m/s [facility] Ao Root Diameter 2.63 cm [facility] AoV Area, Vmax 1.66 cm2 [facility] AoV Area, VTI 1.75 cm2 [facility] AoV Vmax 1.32 m/s [facility] IVS/LVPW,2D 1.11 [facility] Left Atrium Dimension 2.55 cm [facility] Anterior LV,d 4.31 cm [facility] LV,s 3.10 cm [facility] PV VMAX 0.96 m/s [facility] RVSP (TR) 33.62 mmHg [facility] TR Vpeak 2.43 mm/s [facility] MV E A ratio 0.86 mmHg [facility] TR pk grad 23.62 mmHg [facility] RVSP 33.62 mmHg [facility] Ao Root Diameter 2.63 cm [facility] LV SYS VOL 37.82 ml [facility] LV HERNANDEZ VOL 83.47 ml [facility] LV SV Teich 2D 45.65 ml [facility] LV Vol s Teich PSAX 37.82 ml [facility] LVOT CO 2.97 l/min [facility] LVOT HR for LVOT CO 59.49 bpm [facility] AoV Vmn 0.92 [facility] IVS s 2D 1.29 [facility] LV FS Cube 2D 28.13 [facility] LV FS Teich 2D 28.13 [facility] AoV VTI 0.28 m [facility] LV EF,2D 62.87 % [facility] MV AE ratio 1.17 [facility] LVOT Vmn 0.57 [facility] Aov area Vmn 1.61 cm2 [facility] LVOT mean grad 1.44 mmHg [facility] MAX Pred HR 148.94 [facility] 85 of MPHR 126.60 [facility] Calc MPHR 148.94 bpm [facility] IVS pct thck PLAX -0.52 % [facility] LV SV Cube 2D 50.30 ml [facility] LV vol d cube 2D 80.00 ml [facility] LV vol s cube 2D 29.70 ml [facility] LVPW pct thck PLAX 26.23 % [facility] LVPW s PLAX 1.48 cm [facility] MV Decel slope 3.59 m/s2 [facility] Pred Exer Dur R1 6.71 [facility] Pred METS R1 5.46 [facility] Narrative Performed At [facility] Left Ventricular ejection fraction is 50 - 55%. There is mild left ventricular concentric hypertrophy. Right ventricular size is normal. Left atrium size is mildly dilated. No pericardial effusion Trace mitral valve regurgitation The mitral valve appears thickened. There is moderate sclerosis of the aortic valve leaflets. Spectral Doppler shows impaired relaxation pattern of left ventricular diastolic filling. Performing Organization Address City/State/Zipcode Phone Number [facility] [address] [place] [address] * CT Angiogram Chest W Contrast Abdomen W Contrast Pelvis W Contrast (11/18/2017 3:36 AM FIELD SERVICE TECHNICIAN) Narrative Performed At EXAMINATION:CT ANGIOGRAM CHEST ABDOMEN PELVIS W AND OR WITHOUT CONTRAST [facility] CLINICAL HISTORY:chest pain to back left armleg paresthesias TECHNIQUE: Multiple CT angiographic images of the chest, abdomen, and pelvis were obtained during intravenous administration of contrast. Multiple computerized reformatted images as well as 3-D volume rendered images were also obtained. CT imaging was performed with iterative reconstruction technique and/or automated exposure control to reduce radiation dose. COMPARISON:04/01/2015 FINDINGS: CTA: No large main branch, saddle region, or proximal segmental filling defects are seen to suggest pulmonary artery bolus. No aortic aneurysm, dissection, or pseudoaneurysm. Ascending aorta at the root measures 2.5 cm. Mid ascending aorta measures 2.5 cm. Aortic arch measures 2.3 cm. Proximal descending thoracic aorta measures 2 cm. Aorta at the diaphragmatic hiatus measures 1.9 cm. Suprarenal abdominal aorta measures 1.7 cm. Infrarenal abdominal aorta measures 1 cm. Scattered atherosclerotic plaque and calcification is seen of the aorta, most prominent of the infrarenal abdominal aorta. Major branches of the aortic arch are normal. Celiac artery and major branches are normal. Mild atherosclerotic plaque is seen at the origin of the superior mesenteric artery. Major branches are normal. Inferior mesenteric artery and major branches are normal. Mild atherosclerotic plaque and calcification is seen of the bilateral common iliac arteries and common femoral arteries, without significant stenosis. Chest: No consolidations or pneumothorax. Trace right pleural effusion. In the right upper lobe, there is a 6 mm nodule which has remained stable since 2013. No further workup necessary. In the left lower lobe, a 3 mm nodule is seen. The airway is patent. Heart size is normal. Left-sided cardiac device is seen with lead terminating in the right heart. Coronary artery stents and calcifications are seen. No mediastinal or hilar lymphadenopathy. Abdomen/pelvis: Patient is status post cholecystectomy. Diffuse fatty infiltration of the liver. Spleen, pancreas, adrenal glands are normal. Simple cyst is seen of interpolar region of right kidney. Kidneys, ureters and bladder are normal. No free intraperitoneal fluid or air. Diverticulosis is seen without diverticulitis. Appendix is normal. No gastrointestinal tract obstruction. No acute osseous abnormalities. IMPRESSION: No aortic aneurysm, dissection, or pseudoaneurysm. No emergent findings. [facility]-[id number] Procedure Note [facility], Radiology Results Incoming - 11/18/2017 4:07 AM FIELD SERVICE TECHNICIAN EXAMINATION: CT ANGIOGRAM CHEST ABDOMEN PELVIS W AND OR WITHOUT CONTRAST CLINICAL HISTORY: chest pain to back left arm leg paresthesias TECHNIQUE: Multiple CT angiographic images of the chest, abdomen, and pelvis were obtained during intravenous administration of contrast. Multiple computerized reformatted images as well as 3-D volume rendered images were also obtained. CT imaging was performed with iterative reconstruction technique and/or automated exposure control to reduce radiation dose. COMPARISON: 04/01/2015 FINDINGS: CTA: No large main branch, saddle region, or proximal segmental filling defects are seen to suggest pulmonary artery bolus. No aortic aneurysm, dissection, or pseudoaneurysm. Ascending aorta at the root measures 2.5 cm. Mid ascending aorta measures 2.5 cm. Aortic arch measures 2.3 cm. Proximal descending thoracic aorta measures 2 cm. Aorta at the diaphragmatic hiatus measures 1.9 cm. Suprarenal abdominal aorta measures 1.7 cm. Infrarenal abdominal aorta measures 1 cm. Scattered atherosclerotic plaque and calcification is seen of the aorta, most prominent of the infrarenal abdominal aorta. Major branches of the aortic arch are normal. Celiac artery and major branches are normal. Mild atherosclerotic plaque is seen at the origin of the superior mesenteric artery. Major branches are normal. Inferior mesenteric artery and major branches are normal. Mild atherosclerotic plaque and calcification is seen of the bilateral common iliac arteries and common femoral arteries, without significant stenosis. Chest: No consolidations or pneumothorax. Trace right pleural effusion. In the right upper lobe, there is a 6 mm nodule which has remained stable since 2014. No further workup necessary. In the left lower lobe, a 3 mm nodule is seen. The airway is patent. Heart size is normal. Left-sided cardiac device is seen with lead terminating in the right heart. Coronary artery stents and calcifications are seen. No mediastinal or hilar lymphadenopathy. Abdomen/pelvis: Patient is status post cholecystectomy. Diffuse fatty infiltration of the liver. Spleen, pancreas, adrenal glands are normal. Simple cyst is seen of interpolar region of right kidney. Kidneys, ureters and bladder are normal. No free intraperitoneal fluid or air. Diverticulosis is seen without diverticulitis. Appendix is normal. No gastrointestinal tract obstruction. No acute osseous abnormalities. IMPRESSION: No aortic aneurysm, dissection, or pseudoaneurysm. No emergent findings. [facility]-[id number] Performing Organization Address City/State/Zipcode Phone Number [facility] [address] [place] [address] * CT Head Wo Contrast (11/18/2017 3:23 AM FIELD SERVICE TECHNICIAN) Narrative Performed At EXAMINATION: CT HEAD WO [facility]: L sided paresthesiasHTN COMPARISON:10/19/2016 TECHNIQUE: Noncontrast enhanced images of the brain were obtained from the skull base to the vertex. Both soft tissue and bone reconstruction algorithms were performed. CT imaging was performed with iterative reconstruction technique and/or automated exposure control to reduce radiation dose. IMPRESSION: No intracranial hemorrhage, mass, mass effect, or herniation. No acute osseous abnormalities. Paranasal sinuses are clear. Age-related volume loss is seen as characterized by prominence of cerebral sulci and ventricular systems. Conclusion: No acute intracranial abnormalities. [facility]-[id number] Procedure Note Hm Interface, Radiology Results Incoming - 11/18/2017 3:35 AM FIELD SERVICE TECHNICIAN EXAMINATION: CT HEAD WO CONTRAST CLINICAL HISTORY: L sided paresthesias HTN COMPARISON: 10/19/2016 TECHNIQUE: Noncontrast enhanced images of the brain were obtained from the skull base to the vertex. Both soft tissue and bone reconstruction algorithms were performed. CT imaging was performed with iterative reconstruction technique and/or automated exposure control to reduce radiation dose. IMPRESSION: No intracranial hemorrhage, mass, mass effect, or herniation. No acute osseous abnormalities. Paranasal sinuses are clear. Age-related volume loss is seen as characterized by prominence of cerebral sulci and ventricular systems. Conclusion: No acute intracranial abnormalities. [facility]-[id number] Performing Organization Address City/[facility]/Zipcode Phone Number [facility] [address] [place] [address] * Creatine kinase, total (CPK) (11/18/2017 1:07 AM FIELD SERVICE TECHNICIAN) Creatine kinase (L) 61 - 224 U/L [facility] DEPARTMENT OF PATHOLOGY AND GENOMIC MEDICINE Specimen Plasma specimen Performing Organization Address City/[facility]/Zipcode Phone Number [facility] DEPARTMENT OF [address] [place] [address] [place] [address] PATHOLOGY AND GENOMIC MEDICINE after 10/03/2017 Insurance Payer Benefit Subscriber ID Type Phone Address Plan / Group [facility] Guarantor Name Account Relation to Date of Phone Billing Address Type Patient Makayla Michelle Personal/F Self [phone] [facility] [address] [place] [address] Advance Directives Patient has advance care planning documents, and code status on file. For more i nformation, please contact: George Rivera [address] [facility] [place] [address] Date Inactivated Comments Code Status Date Activated 11/19/2017 9:59 PM Full Code 11/18/2017 7:26 PM Code Status decision reached by: Patient Code Status decision reached by: Patient
[2018-10-04] MEDS ORDERED: SODIUM CHLORIDE 0.9% 1000ML 1,000 ML IV STA (15:53)
[2018-10-04] MEDS ORDERED: INSULIN REGULAR, HUMAN 3ML VL 100 UNIT in SODIUM CHLORIDE 0.9% 100 ML 100 ML IV STA ×2 (15:53)
[2018-10-04] MEDS ORDERED: DIPHENHYDRAMINE HCL 25 MG CAP PO PRN (16:00)
[2018-10-04] MEDS ORDERED: ACETAMINOPHEN 325 MG TAB PO PRN (16:00)
[2018-10-04] MEDS ORDERED: ENALAPRILAT IV INJ 1.25 MG/ML VIAL IV PRN (16:00)
[2018-10-04] MEDS ORDERED: ZOLPIDEM TARTRATE 5 MG TAB PO PRN (16:00)
[2018-10-04] MEDS ORDERED: PROMETHAZINE 12.5MG/ NACL 0.9% 12.5 MG/50 ML BAG IV PRN (16:00)
[2018-10-04 16:02] LABS: BASOPHILS # (AUTO) 0.1 (0.0-0.1); BASOPHILS % 0.7 % (0.0-1.0); EOSINOPHILS # (AUTO) 0.2 (0.0-0.4); HEMATOCRIT 42.4 % (34.2-44.1); HEMOGLOBIN 14.7 g/dL (12.0-16.0); LYMPHOCYTES # (AUTO) 2.1 (1.0-3.2); LYMPHOCYTES % 22.7 % (18.0-39.1); MEAN CORPUSCULAR HEMOGLOBIN 29.1 pg (28-32); MEAN CORPUSCULAR HGB CONC 34.7 g/dL (31-35); MONOCYTES # (AUTO) 0.7 (0.2-0.8); MONOCYTES % 7.5 % (4.4-11.3); NEUTROPHILS # (AUTO) 6.1 (2.1-6.9); NEUTROPHILS % 66.8 % (38.7-80.0); PLATELET COUNT 229 x10e3/uL (140-360); RED BLOOD COUNT 5.05 x10e6/uL (3.6-5.1); RED CELL DISTRIBUTION WIDTH 13.1 % (11.7-14.4)
[2018-10-04 16:14] LABS: ALBUMIN 4.1 g/dL (3.5-5.0); ALBUMIN/GLOBULIN RATIO 1.3 (0.8-2.0); CALCIUM 8.5 mg/dL (8.4-10.2); CREATININE, SERUM 1.21 mg/dL (0.57-1.11)
[2018-10-04 16:34] LABS: BILIRUBIN,URINE NEGATIVE (NEGATIVE); CLARITY,URINE SL CLOUDY (CLEAR); COLOR,URINE YELLOW (YELLOW); KETONES,URINE 1+ (NEGATIVE); LEUKOCYTE ESTERASE ,URINE NEGATIVE (NEGATIVE); NITRITE,URINE NEGATIVE (NEGATIVE); PROTEIN,URINE DIPSTICK NEGATIVE (NEGATIVE); URINE UROBILINOGEN 0.2 mg/dL (0.2 - 1)
[2018-10-04 16:46] LABS: EPITHELIAL CELLS,URINE FEW /LPF
--- NOTE | 2018-10-04 16:47 | Diagnostic Imaging Report ---
EXAMINATION: CHEST SINGLE (PORTABLE) INDICATION: Diabetes. Chest pain. COMPARISON: None FINDINGS: TUBES and LINES: Left chest dual lead cardiac device. LUNGS: Lungs are well inflated. Lungs are clear. There is no evidence of pneumonia or pulmonary edema. PLEURA: No pleural effusion or pneumothorax. HEART AND MEDIASTINUM: The cardiomediastinal silhouette is unremarkable. BONES AND SOFT TISSUES: No acute osseous lesion. Soft tissues are unremarkable. UPPER ABDOMEN: No free air under the diaphragm. IMPRESSION: No acute thoracic abnormality. Signed by: Dr. Brice Duran M.D. on 10/04/2018 4:44 PM
[2018-10-04] MEDS ORDERED: DEXTROSE 5%/0.45% SOD CHL 1,000 ML IV SCH (16:51)
[2018-10-04] MEDS ORDERED: MAGNESIUM SULF 1GRAM/DEXTROSE 100 ML IV PRN (17:00)
[2018-10-04] MEDS ORDERED: INSULIN REGULAR, HUMAN 3ML VL 100 UNIT in SODIUM CHLORIDE 0.9% 100 ML 100 ML IV SCH ×2 (17:00)
[2018-10-04] MEDS ORDERED: POTASSIUM CHLORIDE 20MEQ/100ML 200 ML IV PRN (17:00)
[2018-10-04] MEDS ORDERED: INSULIN REGULAR, HUMAN 3ML VL 1 UNIT in SODIUM CHLORIDE 0.9% 100 ML IV SCH ×2 (17:00)
[2018-10-04] MEDS ORDERED: INSULIN REGULAR, HUMAN 3ML VL 100 UNIT in SODIUM CHLORIDE 0.9% 100 ML IV SCH ×2 (17:00)
[2018-10-04] MEDS ORDERED: INSULIN DETEMIR 100 UNIT/ML PEN SQ PRN (17:00)
[2018-10-04] MEDS ORDERED: INSULIN REGULAR, HUMAN 100 UNIT/1 ML 3ML VIAL ONE (17:24)
[2018-10-04] MEDS: FAMOTIDINE 20 MG/2 ML VIAL IV SCH (17:35)
--- OUTSIDE RECORDS SUMMARY | 2018-10-04 17:58 | XMS REPORT | Clinical Summary ---
Author Author [facility] Organization [facility] Address Unknown Phone Unavailable Care Team Providers Care Information Systems Professor Name Role Phone Tang Marvin MD PCP [...] MMODE SPECTRAL 12:44 PM CDT COLOR DOPPLER ([id number]) POC GLUCOSE Routine 02/02/2018 11:56 AM CDT [...] PELVIS W STAT 01/06/2018 CONTRAST 5:34 AM DUPLEX TRIMMER ZZESTIMATED GFR STAT 01/06/2018 3:40 AM DUPLEX TRIMMER HC COMPLETE BLD COUNT STAT 01/06/2018 W/AUTO DIFF 3:40 AM DUPLEX TRIMMER LIPASE LEVEL STAT 01/06/2018 3:40 AM DUPLEX TRIMMER COMPREHENSIVE METABOLIC STAT 01/06/2018 PANEL 3:40 AM DUPLEX TRIMMER URINALYSIS SCREEN AND STAT 01/06/2018 MICROSCOPY, WITH REFLEX 3:30 AM DUPLEX TRIMMER TO CULTURE URINE CULTURE STAT 01/06/2018 3:05 AM DUPLEX TRIMMER POC GLUCOSE Routine 11/19/2017 4:47 PM DUPLEX TRIMMER POC GLUCOSE Routine 11/19/2017 11:17 AM DUPLEX TRIMMER POC GLUCOSE Routine 11/19/2017 7:26 AM DUPLEX TRIMMER ZZESTIMATED GFR Timed 11/19/2017 7:04 AM DUPLEX TRIMMER COMPREHENSIVE METABOLIC Timed 11/19/2017 PANEL 7:04 AM DUPLEX TRIMMER HC COMPLETE BLD COUNT Timed 11/19/2017 W/AUTO DIFF 7:04 AM DUPLEX TRIMMER TROPONIN Timed 11/19/2017 7:04 AM DUPLEX TRIMMER ECG 12-LEAD Routine 11/19/2017 6:11 AM DUPLEX TRIMMER TROPONIN Timed 11/19/2017 1:56 AM DUPLEX TRIMMER ECG 12-LEAD Routine 11/18/2017 11:22 PM DUPLEX TRIMMER TROPONIN Timed 11/18/2017 8:50 PM DUPLEX TRIMMER ECG ED PRELIMINARY Routine 11/18/2017 INTERPRETATION 8:27 PM DUPLEX TRIMMER ECG 12-LEAD Routine 11/18/2017 7:41 PM DUPLEX TRIMMER ECHOCARDIOGRAM 2D Routine 11/18/2017 COMPLETE W MMODE SPECTRAL 5:17 PM DUPLEX TRIMMER COLOR DOPPLER ([id number]) POC GLUCOSE Routine 11/18/2017 4:35 PM DUPLEX TRIMMER POC GLUCOSE Routine 11/18/2017 11:31 AM DUPLEX TRIMMER POC GLUCOSE Routine 11/18/2017 7:13 AM DUPLEX TRIMMER LIPID PANEL Routine 11/18/2017 6:00 AM DUPLEX TRIMMER TROPONIN Timed 11/18/2017 6:00 AM DUPLEX TRIMMER POC GLUCOSE Routine 11/18/2017 5:[address] ANGIOGRAM CHEST STAT 11/18/2017 ABDOMEN PELVIS W AND OR 3:36 AM DUPLEX TRIMMER WITHOUT CONTRAST CT HEAD WO CONTRAST STAT 11/18/2017 3:23 AM DUPLEX TRIMMER XR CHEST 2 VW STAT 11/18/2017 1:17 AM DUPLEX TRIMMER HEMOGLOBIN A1C Routine 11/18/2017 1:07 AM DUPLEX TRIMMER ZZESTIMATED GFR STAT 11/18/2017 1:07 AM DUPLEX TRIMMER B NATRIURETIC PEPTIDE STAT 11/18/2017 1:07 AM DUPLEX TRIMMER TROPONIN STAT 11/18/2017 1:07 AM DUPLEX TRIMMER CREATINE KINASE, TOTAL STAT 11/18/2017 (CPK) 1:07 AM DUPLEX TRIMMER COMPREHENSIVE METABOLIC STAT 11/18/2017 PANEL 1:07 AM DUPLEX TRIMMER PROTHROMBIN TIME WITH INR STAT 11/18/2017 1:07 AM DUPLEX TRIMMER HC COMPLETE BLD COUNT STAT 11/18/2017 W/AUTO DIFF 1:07 AM DUPLEX TRIMMER ECG 12-LEAD STAT 11/18/2017 12:14 AM DUPLEX TRIMMER after 10/03/2017 Results * XR Chest 1 [...] seen. Impression: No active cardiopulmonary disease identified. [facility]-[id number] Procedure Note Hm Interface, Radiology Results Incoming [...] seen. Impression: No active cardiopulmonary disease identified. [facility]-[id number] Performing Organization Address City/[facility] Phone Number [facility] [address] [place] [address] * Estimated GFR (04/21/2018 2:56 AM CDT) Only the most recent of 6 results within the time period is included. GFR Non Af Amer 49 (A) mL/min/1.73 m2 [facility] DEPARTMENT OF PATHOLOGY AND GENOMIC MEDICINE GFR Af Amer 59 (A) mL/min/1.73 m2 [facility] DEPARTMENT OF Comment: PATHOLOGY AND Chronic kidney [...] Americans. Specimen Plasma specimen Performing Organization Address City/[facility] [place] [address] PATHOLOGY AND [facility]ICINE * Partial thromboplastin time, activated (04/21/2018 2:56 AM CDT) Only the most recent of 2 results within the time period is included. PTT 28.0 23.0 - 36.0 sec [facility] DEPARTMENT OF Comment: PATHOLOGY AND PTT therapeutic range for GENOMIC MEDICINE unfractionated heparin is 61.0-112.0 seconds which corresponds to Anti-Xa 0.3-0.7 U/ml. Note:Change in Panic Value The PTT Panic Value is changing from 110 sec. to 100 sec. due to new instrumentation and reagents. Correlation studies have been performed to validate this result. Specimen Blood Performing Organization Address [facility] [place] [address] PATHOLOGY AND [facility]ICINE * Prothrombin time with INR (04/21/2018 2:56 AM CDT) Only the most recent of 3 results within the time period is included. Prothrombin time 12.3 12.0 - 15.0 sec [facility] DEPARTMENT OF PATHOLOGY AND [facility] MEDICINE INR 0.91 (L) 0.92 - 1.12 [facility] DEPARTMENT OF Comment: PATHOLOGY AND For patients on anticoagulant GENOMIC MEDICINE therapy, reference ranges below: Indication: INR Value Treatment of Venous Thrombosis, 2.0-3.0 pulmonary emboli, or prophylaxis of a venous thrombosis, or systemic emboli. High dose, high risk patients 3.0-4.5 with mechanical valves. NOTE:INR values over 3.0 are sometimes associated with gastrointestinal hemorrhage, especially values over 4.0. Specimen Blood Performing Organization Address City/[facility] [place] [address] PATHOLOGY AND [facility]ICINE * CBC with platelet and differential (04/21/2018 2:56 AM CDT) Only the most recent of 6 results within the time period is included. WBC 8.5 4.2 - 11.0 k/uL [facility] DEPARTMENT OF PATHOLOGY AND GENOMIC MEDICINE RBC 4.30 4.04 - 5.86 m/uL [facility] DEPARTMENT OF PATHOLOGY AND GENOMIC MEDICINE HGB 12.9 11.5 - 15.3 g/dL [facility] DEPARTMENT OF PATHOLOGY AND GENOMIC MEDICINE HCT 37.8 34.0 - 45.0 % [facility] DEPARTMENT OF PATHOLOGY AND GENOMIC MEDICINE MCV 87.9 80.0 - 98.0 fL [facility] DEPARTMENT OF PATHOLOGY AND GENOMIC MEDICINE MCH 30.0 27.0 - 34.0 pg [facility] DEPARTMENT OF PATHOLOGY AND GENOMIC MEDICINE MCHC 34.1 31.5 - 36.5 g/dL [facility] DEPARTMENT OF PATHOLOGY AND GENOMIC MEDICINE RDW - SD 39.0 37.0 - 51.0 fL [facility] DEPARTMENT OF PATHOLOGY AND GENOMIC MEDICINE MPV 10.9 (H) 7.4 - 10.4 fL [facility] DEPARTMENT OF PATHOLOGY AND GENOMIC MEDICINE Platelet count 278 150 - 400 k/uL [facility] DEPARTMENT OF PATHOLOGY AND GENOMIC MEDICINE Nucleated RBC 0.00 /100 WBC [facility] DEPARTMENT OF PATHOLOGY AND GENOMIC MEDICINE Neutrophils 66.4 (H) 36.0 - 66.0 % [facility] DEPARTMENT OF PATHOLOGY AND GENOMIC MEDICINE Lymphocytes 23.7 (L) 24.0 - 44.0 % [facility] DEPARTMENT OF PATHOLOGY AND GENOMIC MEDICINE Monocytes 6.8 (H) 0.0 - 6.0 % [facility] DEPARTMENT OF PATHOLOGY AND GENOMIC MEDICINE Eosinophils 2.1 0.0 - 6.0 % [facility] DEPARTMENT OF PATHOLOGY AND GENOMIC MEDICINE Basophils 0.8 0.0 - 1.2 % [facility] DEPARTMENT OF PATHOLOGY AND GENOMIC MEDICINE Immature granulocytes 0.2 0.0 - 1.0 % [facility] DEPARTMENT OF PATHOLOGY AND GENOMIC MEDICINE Specimen Blood Performing Organization Address City/State/Zipcode Phone Number [place] [address] [place] [address] PATHOLOGY AND GENOMIC MEDICINE * Basic metabolic panel (04/21/2018 2:56 AM CDT) Sodium 132 (L) 135 - 150 mEq/L [facility] DEPARTMENT OF PATHOLOGY AND GENOMIC MEDICINE Potassium 4.2 3.5 - 5.0 mEq/L [facility] DEPARTMENT OF PATHOLOGY AND GENOMIC MEDICINE Chloride 97 (L) 100 - 109 mEq/L [facility] DEPARTMENT OF PATHOLOGY AND GENOMIC MEDICINE CO2 25 24 - 32 mmol/L [facility] DEPARTMENT OF PATHOLOGY AND GENOMIC MEDICINE Anion gap 10@ANIO 7 - 15 mEq/L [facility] DEPARTMENT OF PATHOLOGY AND GENOMIC MEDICINE BUN 24 (H) 7 - 18 mg/dL [facility] DEPARTMENT OF PATHOLOGY AND GENOMIC MEDICINE Creatinine 1.1 0.8 - 1.5 mg/dL [facility] DEPARTMENT OF PATHOLOGY AND GENOMIC MEDICINE Glucose 453 (HH) 65 - 100 mg/dL [facility] DEPARTMENT OF Comment: PATHOLOGY AND Results called to and read [facility] back by MARCELINA BAIG RN ER AT 03:3606 BY BALWINDER. Calcium 8.8 8.6 - 10.7 mg/dL [facility] DEPARTMENT OF PATHOLOGY AND GENOMIC MEDICINE Specimen Plasma specimen Performing Organization Address [facility] Phone Number [facility] [address] [place] [address] PATHOLOGY AND GENOMIC MEDICINE * D-dimer (02/03/2018 6:01 PM CDT) D-dimer 0.36 0.00 - 0.40 ug/mL FEU [facility] DEPARTMENT OF Comment: PATHOLOGY AND Units are ug/ml Fibrinogen [facility] MEDICINE Equivalent Unit. When combined with low [...] and malignancies. Specimen Blood Performing Organization Address [facility] Phone Number [facility] [address] [place] [address] PATHOLOGY AND GENOMIC MEDICINE * POC glucose (02/03/2018 4:23 PM CDT) Only the most recent of 14 results within the time period is included. POC glucose 174 (H) 65 - 100 mg/dL [facility] DEPARTMENT OF Comment: PATHOLOGY AND Meter ID: [id number] GENOMIC MEDICINE Network Designer: Jenifer Sanchez Performing Organization Address City/State/Zipcode Phone Number [facility] DEPARTMENT OF [address] [place] [address] PATHOLOGY AND [facility] * Troponin (02/03/2018 4:34 AM CDT) Only the most recent of 9 results within the time period is included. Troponin <0.01 0.00 - 0.60 ng/mL [facility] DEPARTMENT OF Comment: PATHOLOGY AND 0.11 - 1.49 GENOMIC MEDICINE ng/mlMay indicate increased risk of acute coronary syndrome. >=1.5 ng/ml Consistent with acute myocardial infarction. The diagnostic value of a single normal or non-diagnostic result is questionable.Serial samples at 2-6 hour intervals are required to rule out acute myocardial injury. Specimen Plasma specimen Performing Organization Address City/[facility] [place] [address] PATHOLOGY AND GENOMIC MEDICINE * T3, free (02/03/2018 4:34 AM CDT) T3, free 2.55 2.18 - 3.98 pmol/L [facility] PATHOLOGY AND [facility]ICINE Specimen Plasma specimen Performing Organization Address [facility] [place] [address] PATHOLOGY AND [facility] * Thyroid stimulating hormone (02/03/2018 4:34 AM CDT) TSH 0.96 0.38 - 4.82 uIU/mL [facility] PATHOLOGY AND [facility]ICINE Specimen Plasma specimen Performing Organization Address [facility] [place] [address] PATHOLOGY AND [facility] * B natriuretic peptide (02/03/2018 4:34 AM CDT) Only the most recent of 3 results within the time period is included. BNP 28 0 - 100 pg/mL [facility] OF PATHOLOGY AND GENOMIC MEDICINE Specimen Blood Performing Organization Address [facility] [place] [address] PATHOLOGY AND [facility]ICINE * Magnesium level (02/03/2018 4:34 AM CDT) Magnesium 1.90 1.60 - 2.40 mg/dL [facility] PATHOLOGY AND [facility] MEDICINE Specimen Plasma specimen Performing Organization Address [facility] [place] [address] PATHOLOGY AND [facility]ICINE * Hemoglobin A1c (02/03/2018 4:34 AM CDT) Only the most recent of 2 results within the time period is included. Hemoglobin A1C 10.2 (H) 4.0 - 6.0 % [facility] DEPARTMENT OF Comment: PATHOLOGY AND [facility] MEDICINE Less than 6% - Goal of therapy for Type II Diabetes Less than 7%-Goal of therapy for Type I Diabetes Less than 8%-Accepta ble control for Type I or Type II Diabetes Greater than 8%-Unacceptabl e control; action indicated. ([id number]) Specimen Blood Performing Organization Address City/[facility]/Zipcode Phone Number [facility] [address] [place] [address] PATHOLOGY AND [facility]ICINE * Lipid panel (02/03/2018 4:34 AM CDT) Only the most recent of 2 results within the time period is included. Cholesterol 194 120 - 200 mg/dL [facility] DEPARTMENT OF PATHOLOGY AND [facility] MEDICINE Triglycerides 131 50 - 150 mg/dL [facility] DEPARTMENT OF PATHOLOGY AND [facility] MEDICINE HDL cholesterol 78 (H) 40 - 60 mg/dL [facility] OF PATHOLOGY AND [facility] MEDICINE LDL cholesterol 108Comment: Result obtained by mg/dL [facility] DEPARTMENT OF direct LDL measurement [facility] AND [facility] Specimen Plasma specimen Performing Organization Address City/[facility] [place] [address] PATHOLOGY AND [facility] * Comprehensive metabolic panel (02/03/2018 4:34 AM CDT) Only the most recent of 5 results within the time period is included. Sodium 138 135 - 150 mEq/L [facility] DEPARTMENT OF PATHOLOGY AND [facility]ICINE Potassium 4.1 3.5 - 5.0 mEq/L [facility] DEPARTMENT OF PATHOLOGY AND [facility] MEDICINE Chloride 104 100 - 109 mEq/L [facility] DEPARTMENT OF PATHOLOGY AND [facility]ICINE CO2 26 24 - 32 mmol/L [facility] DEPARTMENT OF PATHOLOGY AND [facility] MEDICINE Anion gap 8 7 - 15 mEq/L [facility] DEPARTMENT OF Comment: PATHOLOGY AND Starting from February [facility] , anion gap calculation no longer incorporates potassium. Please note the change. BUN 19 (H) 7 - 18 mg/dL [facility] DEPARTMENT OF PATHOLOGY AND [facility]ICINE Creatinine 0.7 (L) 0.8 - 1.5 mg/dL [facility] DEPARTMENT OF PATHOLOGY AND [facility] MEDICINE Glucose 154 (H) 65 - 100 mg/dL [facility] DEPARTMENT OF PATHOLOGY AND GENOMIC MEDICINE Calcium 9.0 8.6 - 10.7 mg/dL [facility] DEPARTMENT OF PATHOLOGY AND GENOMIC MEDICINE Protein 6.8 6.3 - 8.2 g/dL [facility] DEPARTMENT OF PATHOLOGY AND GENOMIC MEDICINE Albumin 3.2 3.2 - 5.0 g/dL [facility] DEPARTMENT OF PATHOLOGY AND GENOMIC MEDICINE A/G ratio 0.9 0.7 - 3.8 [facility] DEPARTMENT OF PATHOLOGY AND GENOMIC MEDICINE Alkaline phosphatase 137 (H) 30 - 120 U/L [facility] DEPARTMENT OF PATHOLOGY AND GENOMIC MEDICINE AST 12 (L) 15 - 37 U/L [facility] DEPARTMENT OF PATHOLOGY AND GENOMIC MEDICINE ALT 25 (L) 30 - 65 U/L [facility] DEPARTMENT OF PATHOLOGY AND GENOMIC MEDICINE Total bilirubin 0.4 0.2 - 1.2 mg/dL [facility] DEPARTMENT OF PATHOLOGY AND GENOMIC MEDICINE Specimen Plasma specimen Performing Organization Address City/[facility] Phone Number [place] [address] [place] [address] PATHOLOGY AND GENOMIC MEDICINE * CV stress test (02/02/2018 6:39 PM CDT) Resting HR 62 [facility] Resting BP 127 [facility] Peak MET Achieved 1.0 [facility] Protocol Name KELVIN [facility] Time in Exercise Phase 00:01:07 [facility] Max Systolic BP 184 [facility] Max Diastolic BP 79 [facility] Max Heart Rate 86 [facility] Max Predicted Heart Rate 149 [facility] Target HR Formula (220 - Age)*100% [facility] Test Indication Syncope [facility] Arrhy During Ex none [facility] ECG Interp Before EX Normal [facility] ECG Interp During Ex none [facility] Ex Summary Comment Normal stress test [facility] Chest Pain Statement none [facility] Overall HR Response to appropriate [facility] Exercise Overall BP Response To normal resting BP - [facility] Exercise appropriate response Reason for Termination Protocol completed [facility] Stress Test Impression - Performing Organization Address City/State/[facility] Phone Number [facility] [address] [place] [address] * Myocardial perfusion (02/02/2018 6:39 PM CDT) [...] Address City/State/Zipcode Phone Number [facility] [address] [place] [address] * Echocardiogram complete w contrast and 3D [...] Organization Address City/State/Zipcode Phone Number [facility] [address] [place] [address] * ECG 12 lead (02/02/2018 3:15 AM CDT) Only the most recent of 6 results within the time period is included. Ventricular rate 54 [facility] Atrial rate [address] [facility] [address] interval 138 [facility] QRSD interval 108 [...] has decreased BY26 BPM- Performing Organization Address [facility] Phone Number [facility] [address] [place] [address] * XR Chest 2 Vw (02/01/2018 9:55 PM CDT) Only the most recent of 2 results within the time period is included. Narrative Performed At EXAMINATION:XR CHEST 2 VW RADIANT CLINICAL HISTORY:Chest Pain COMPARISON:11/18/2017 IMPRESSION: Cardiomediastinal silhouette is within normal limits. Left-sided cardiac device is in place. No consolidations, effusions, or pneumothorax. No acute osseous abnormalities. [facility]-[id number] Procedure Note Hm Interface, Radiology Results Incoming - 02/01/2018 10:01 PM CDT EXAMINATION: XR CHEST 2 VW CLINICAL HISTORY: Chest Pain COMPARISON: 11/18/2017 IMPRESSION: Cardiomediastinal silhouette is within normal limits. Left-sided cardiac device is in place. No consolidations, effusions, or pneumothorax. No acute osseous abnormalities. [facility]-[id number] Performing Organization Address [facility] Phone Number [facility] [address] [place] [address] * ECG ED Preliminary Interpretation - NOT AN ORDER (02/01/2018 9:08 PM CDT) Only the most recent of 2 results within the time period is included. Narrative Performed At Jorden Jaquez MD 02/01/2018 10:09 PM ECG ED Preliminary Interpretation - Not an Order Performed by: JORDEN JAQUEZ Authorized by: JORDEN JAQUEZ ECG reviewed by ED Physician in the absence of a security clerk: yes Interpretation: Interpretation: abnormal Rate: ECG rate:80 ECG rate assessment: normal Rhythm: Rhythm: sinus rhythm Ectopy: Ectopy: PVCs PVCs:Frequent QRS: QRS axis:Normal QRS intervals:Normal Conduction: Conduction: normal ST segments: ST segments:Normal T waves: T waves: normal Other findings: Other findings comment:Demand pacemaker with paced beats * CT Abdomen Pelvis W Contrast (01/06/2018 5:34 AM DUPLEX TRIMMER) Narrative Performed At EXAMINATION:CT ABDOMEN PELVIS W [...] acute osseous abnormalities. CONCLUSION: No emergent findings. [facility]-[id number] Procedure Note Interface, Radiology Results Incoming - 01/06/2018 6:07 AM DUPLEX TRIMMER EXAMINATION: CT ABDOMEN PELVIS W CONTRAST CLINICAL [...] acute osseous abnormalities. CONCLUSION: No emergent findings. [facility]-[id number] Performing Organization Address City/State/Zipcode Phone Number [place] [address] [place] [address] * Lipase level (01/06/2018 3:40 AM DUPLEX TRIMMER) Lipase 121 65 - 230 U/L [facility] DEPARTMENT OF PATHOLOGY AND GENOMIC MEDICINE Specimen Plasma specimen Performing Organization Address City/[facility] Phone Number [address] [place] [address] PATHOLOGY AND GENOMIC MEDICINE * Urinalysis screen and microscopy, with reflex to culture (01/06/2018 3:30 AM DUPLEX TRIMMER) Specimen site Clean catch [facility] DEPARTMENT OF PATHOLOGY AND GENOMIC MEDICINE Color, UA Yellow [facility] DEPARTMENT OF PATHOLOGY AND GENOMIC MEDICINE Appearance, UA Clear [facility] DEPARTMENT OF PATHOLOGY AND GENOMIC MEDICINE Specific gravity, UA 1.021 1.001 - 1.035 [facility] DEPARTMENT OF PATHOLOGY AND GENOMIC MEDICINE pH, UA 5.0 5.0 - 8.5 [facility] DEPARTMENT OF PATHOLOGY AND GENOMIC MEDICINE Protein, UA Negative Negative [facility] DEPARTMENT OF PATHOLOGY AND GENOMIC MEDICINE Glucose, UA Negative Negative [facility] DEPARTMENT OF PATHOLOGY AND GENOMIC MEDICINE Ketones, UA Negative Negative [facility] DEPARTMENT OF PATHOLOGY AND GENOMIC MEDICINE Bilirubin, UA Negative Negative [facility] DEPARTMENT OF PATHOLOGY AND GENOMIC MEDICINE Blood, UA Negative Negative [facility] DEPARTMENT OF PATHOLOGY AND GENOMIC MEDICINE Nitrite, UA Negative Negative [facility] DEPARTMENT OF PATHOLOGY AND GENOMIC MEDICINE Urobilinogen, UA Negative <2.0 [facility] DEPARTMENT OF PATHOLOGY AND GENOMIC MEDICINE Leukocyte esterase, UA Negative Negative [facility] DEPARTMENT OF PATHOLOGY AND GENOMIC MEDICINE Epithelial cells, UA Few /HPF [facility] DEPARTMENT OF PATHOLOGY AND GENOMIC MEDICINE WBC, UA 3 0 - 5 /HPF [facility] DEPARTMENT OF PATHOLOGY AND GENOMIC MEDICINE RBC, UA 1 0 - 5 /HPF [facility] DEPARTMENT OF PATHOLOGY AND GENOMIC MEDICINE Bacteria, UA None seen None seen [facility] DEPARTMENT OF PATHOLOGY AND GENOMIC MEDICINE Yeast, UA None seen [facility] DEPARTMENT OF PATHOLOGY AND GENOMIC MEDICINE Yeast with pseudohyphae, None seen [facility] DEPARTMENT OF PATHOLOGY AND GENOMIC MEDICINE Specimen Urine Performing Organization Address City/[facility]/Zipcode Phone Number [facility] [address] [place] [address] PATHOLOGY AND GENOMIC MEDICINE * Urine culture (01/06/2018 3:05 AM DUPLEX TRIMMER) Urine culture SEE COMMENTComment: [facility] DEPARTMENT OF Bacteriuria screen negative. PATHOLOGY AND GENOMIC MEDICINE Performing Organization Address City/State/Zipcode Phone Number [facility] DEPARTMENT OF [address] [place] [address] PATHOLOGY AND GENOMIC MEDICINE * Echocardiogram complete w contrast and 3D if needed (11/18/2017 5:17 PM DUPLEX TRIMMER) Velocity Ratio (V1/V2) 0.64 m/s [facility] [...] Address City/State/Zipcode Phone Number [facility] [address] [place] [address] * CT Angiogram Chest W Contrast Abdomen W Contrast Pelvis W Contrast (11/18/2017 3:36 AM DUPLEX TRIMMER) Narrative Performed At EXAMINATION:CT ANGIOGRAM CHEST ABDOMEN [...] aneurysm, dissection, or pseudoaneurysm. No emergent findings. [facility]-[id number] Procedure Note [facility], Radiology Results Incoming - 11/18/2017 4:07 AM DUPLEX TRIMMER EXAMINATION: CT ANGIOGRAM CHEST ABDOMEN PELVIS W [...] aneurysm, dissection, or pseudoaneurysm. No emergent findings. [facility]-[id number] Performing Organization Address City/State/Zipcode Phone Number [facility] [address] [place] [address] * CT Head Wo Contrast (11/18/2017 3:23 AM DUPLEX TRIMMER) Narrative Performed At EXAMINATION: CT HEAD WO CONTRAST [facility] HISTORY: L sided paresthesiasHTN COMPARISON:10/19/2016 TECHNIQUE: [...] ventricular systems. Conclusion: No acute intracranial abnormalities. [facility]-[id number] Procedure Note Hm Interface, Radiology Results Incoming - 11/18/2017 3:35 AM DUPLEX TRIMMER EXAMINATION: CT HEAD WO CONTRAST CLINICAL HISTORY: [...] ventricular systems. Conclusion: No acute intracranial abnormalities. [facility]-[id number] Performing Organization Address City/[facility]/Zipcode Phone Number [facility] [address] [place] [address] * Creatine kinase, total (CPK) (11/18/2017 1:07 AM DUPLEX TRIMMER) Creatine kinase (L) 61 - 224 U/L [facility] DEPARTMENT OF PATHOLOGY AND GENOMIC MEDICINE Specimen Plasma specimen Performing Organization Address City/[facility]/Zipcode Phone Number [facility] DEPARTMENT OF [address] [place] [address] [place] [address] PATHOLOGY AND GENOMIC MEDICINE after 10/03/2017 Insurance Payer Benefit Subscriber ID Type Phone Address Plan / Group [facility] xxxxxxxx O [facility] Advance Directives Patient has advance care planning documents, and code status on file. For more i nformation, please contact: George Rivera [address] [facility] [place] [address] Date Inactivated Comments Code Status Date Activated 11/19/2017 9:59 PM Full Code 11/18/2017 7:26 PM Code Status decision reached by: Patient Code Status decision reached by: Patient
--- OUTSIDE RECORDS SUMMARY | 2018-10-04 17:58 | XMS REPORT ---
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 Allergies, Adverse Reactions, Alerts This patient has no known allergies or adverse reactions. Medications This patient has no known medications. Results Test Description Test Time Test Comments Text Results Atomic Results Result Comments CHEST SINGLE (PORTABLE) 2018-10-04 16:43:00 [facility] [address] [place] [address] Patient Name: FLORINA JOHNSON MR #: [id number] : 1945 Age/Sex: 72/F Req #: [id number] Adm Physician: Ordered by: BRETT OLSEN MD Report #: [id number] Location: ER Room/Bed: Procedure: [id number] DX/CHEST SINGLE (PORTABLE) Exam Date: Exam Time: REPORT STATUS: Signed EXAMINATION: CHEST SINGLE (PORTABLE) INDICATION: Diabetes. Chest pain. COMPARISON: None FINDINGS: TUBES and LINES: Left chest dual lead cardiac device. LUNGS: Lungs are well inflated. Lungs are clear. There is no evidence of pneumonia or pulmonary edema. PLEURA: No pleural effusion or pneumothorax. HEART AND MEDIASTINUM: The cardiomediastinal silhouette is unremarkable. BONES AND SOFT TISSUES: No acute osseous lesion. Soft tissues are unremarkable. UPPER ABDOMEN: No free air under the diaphragm. IMPRESSION: No acute thoracic abnormality. Signed by: Dr. Brice Duran M.D. on 10/04/2018 4:44 PM Dictated By: BRICE DURAN MD, MD 43 Transcribed By: BEHZAD on 10/04/181643 COPY TO: BRETT OLSEN MD
[2018-10-04] MEDS: SODIUM CHLORIDE 0.9% 1000ML 1,000 ML IV SCH ×2 (18:39→21:00)
[2018-10-04 20:09] LABS: BLOOD UREA NITROGEN 11 mg/dL (7-26); BUN/CREATININE RATIO 13 (6-25); CALCIUM 8.1 mg/dL (8.4-10.2); CARBON DIOXIDE 13 mmol/L (22-29); CHLORIDE 103 mmol/L (98-107); CREATININE, SERUM 0.86 mg/dL (0.57-1.11); EST GLOMERULAR FILTRATION RATE > 60 ML/MIN (60-); GLUCOSE 243 mg/dL (74-118); MAGNESIUM 2.2 MG/DL (1.3-2.1); SODIUM 130 mmol/L (136-145)
[2018-10-04] MEDS ORDERED: DEXTROSE 50% SYRINGE 50 ML IV PRN (21:15)
[2018-10-04] MEDS: INSULIN REGULAR, HUMAN 3ML VL 100 UNIT in SODIUM CHLORIDE 0.45% 100 ML 99 ML IV SCH ×4 (21:30→22:03)
[2018-10-04] MEDS ORDERED: ASPIRIN 81 MG CHEW TAB PO ONE (22:15)
[2018-10-04 22:54] LABS: CREATINE KINASE MB 1.3 ng/mL (0-5.0)
[2018-10-04 23:39] VITALS: BP 137/80
[2018-10-05] VITALS (13 sets, daily range): BP systolic 101–177; BP diastolic 45–91
[2018-10-05] MEDS: MORPHINE SULFATE 2 MG/ML SYR IV PRN ×2 (02:03→12:10)
[2018-10-05] MEDS: ONDANSETRON HCL INJ 2 MG/ML VIAL IV PRN ×2 (02:03→15:12)
[2018-10-05] MEDS ORDERED: ASPIRIN 81 MG CHEW TAB ONE (02:22)
[2018-10-05] MEDS: SODIUM CHLORIDE 0.9% 1000ML 1,000 ML IV SCH (02:41)
[2018-10-05 05:17] LABS: CREATINE KINASE MB 1.2 ng/mL (0-5.0)
[2018-10-05] MEDS: NYSTATIN 15 GM POWDER UD BTL TOP SCH ×2 (09:59→17:39)
[2018-10-05] MEDS: FAMOTIDINE 20 MG/2 ML VIAL IV SCH (09:59)
[2018-10-05 10:23] LABS: BASOPHILS # (AUTO) 0.1 (0.0-0.1); BASOPHILS % 0.7 % (0.0-1.0); EOSINOPHILS # (AUTO) 0.2 (0.0-0.4); EOSINOPHILS % 2.9 % (0.0-6.0); HEMATOCRIT 37.3 % (34.2-44.1); LYMPHOCYTES # (AUTO) 2.4 (1.0-3.2); LYMPHOCYTES % 30.7 % (18.0-39.1); MEAN CORPUSCULAR HEMOGLOBIN 29.7 pg (28-32); MEAN CORPUSCULAR HGB CONC 34.9 g/dL (31-35); MEAN CORPUSCULAR VOLUME 85.4 fL (81-99); MONOCYTES # (AUTO) 0.7 (0.2-0.8); MONOCYTES % 8.9 % (4.4-11.3); NEUTROPHILS # (AUTO) 4.3 (2.1-6.9); NEUTROPHILS % 56.5 % (38.7-80.0); PLATELET COUNT 189 x10e3/uL (140-360); RED BLOOD COUNT 4.37 x10e6/uL (3.6-5.1); RED CELL DISTRIBUTION WIDTH 13.1 % (11.7-14.4)
[2018-10-05 10:35] LABS: ALANINE AMINOTRANSFERASE 6 IU/L (0-55); ALBUMIN 3.2 g/dL (3.5-5.0); ALBUMIN/GLOBULIN RATIO 1.3 (0.8-2.0); ALKALINE PHOSPHATASE 79 IU/L (40-150); ANION GAP 15.5 mmol/L (8-16); BLOOD UREA NITROGEN 7 mg/dL (7-26); BUN/CREATININE RATIO 10 (6-25); CALCIUM 7.8 mg/dL (8.4-10.2); CARBON DIOXIDE 18 mmol/L (22-29); CHLORIDE 108 mmol/L (98-107); CREATININE, SERUM 0.68 mg/dL (0.57-1.11); EST GLOMERULAR FILTRATION RATE > 60 ML/MIN (60-); GLUCOSE 170 mg/dL (74-118); MAGNESIUM 1.9 MG/DL (1.3-2.1); PHOSPHORUS 2.3 MG/DL (2.3-4.7); POTASSIUM 3.5 mmol/L (3.5-5.1); SODIUM 138 mmol/L (136-145)
[2018-10-05] MEDS ORDERED: ALPRAZOLAM 0.25 MG TAB PO PRN (13:15)
--- NOTE | 2018-10-05 14:02 | History and Physical ---
PRIMARY CARE PHYSICIAN: Dr. Simeon Marvin. CONSULTANTS: Dr. Antoine Munguia and Dr. Stan Torrez CHIEF COMPLAINT: Severe high blood sugar in the 700s. Noncompliance due to financial constraint. HISTORY: This 72-year-old female stopped all her insulin back in January. Patient has not seen Dr. Simeon Marvin until she needed refill on her medications. She came to see him, and apparently on the visit the patient had a blood sugar very high. Here the blood sugar was 731 with sodium level 122. The patient did not take any of her medications recently because she was not able to follow up with Dr. Simeon Marvin. She also had a recent stress test done prior to this admission. The patient has an ICD to left chest area. Her reason for noncompliance with her medication is because of financial constraint. PAST MEDICAL HISTORY: Includes coronary disease with 5 stents, left AICD, diabetes type 2 on insulin therapy, hypertension, dyslipidemia, cataracts, multiple strokes with also episode of tPA treatment on October 05, 2016. Osteoarthritis, chronic pain. PAST SURGICAL HISTORY: Right knee surgery, replacement. Hysterectomy. Right wrist surgery. Right shoulder surgery and gallbladder surgery. SOCIAL HISTORY: Patient does not smoke or use alcohol. No recreational drugs. ALLERGIES: LATEX, SUMATRIPTAN, CHLORZOXAZONE. LIST OF MEDICATIONS: Will review when available. REVIEW OF SYSTEMS: As mentioned above. PHYSICAL EXAMINATION GENERAL: The patient is not in acute distress. She is awake. VITAL SIGNS: Temperature is 98. Blood pressure 144/57. Pulse rate 61. Respirations 18. HEENT: Normocephalic, atraumatic, anicteric. NECK: Supple grossly. PULMONARY: Clear. CARDIOVASCULAR: Regular rate and rhythm. AICD at left chest. ABDOMEN: Soft and unremarkable. EXTREMITIES: No cyanosis or edema. NEUROLOGIC: No gross focal deficit. LABORATORY: Sodium is 122, potassium 4, chloride 92, bicarb 16. BUN is 14 and creatinine 1.2. Glucose 731. WBC is 7.6, hemoglobin 13, hematocrit 37, platelets 189. IMPRESSION 1. Early onset diabetic ketoacidosis with metabolic acidosis and increase in anion gap secondary to severe hyperglycemia. 2. Hyponatremia, but corrected. The patient does not have hyponatremia since her sugar was 731. 3. Compliancy issue to her multiple chronic medical problems. 4. Dehydration secondary to the above. PLAN: Continue with protocol for early DKA with Dr. Antoine Munguia. Consultation with Dr. Stan Torrez. The patient may need AICD battery exchange. The patient is otherwise stable at this time. Resume home medications. Will need social insurance analyst and lining caser involved in the patient's care due to her financial constraint. Job#: [id number]
[2018-10-05] MEDS ORDERED: INSULIN LISPRO 100 UNIT/1 ML 3ML VIAL SQ SCH (14:15)
[2018-10-05 14:16] LABS: ANION GAP 16.8 mmol/L (8-16); BLOOD UREA NITROGEN 6 mg/dL (7-26); BUN/CREATININE RATIO 9 (6-25); CALCIUM 8.1 mg/dL (8.4-10.2); CARBON DIOXIDE 15 mmol/L (22-29); CHLORIDE 108 mmol/L (98-107); CREATININE, SERUM 0.67 mg/dL (0.57-1.11); EST GLOMERULAR FILTRATION RATE > 60 ML/MIN (60-); GLUCOSE 220 mg/dL (74-118); POTASSIUM 3.8 mmol/L (3.5-5.1); SODIUM 136 mmol/L (136-145)
[2018-10-05] MEDS: DEXTROSE 5%/0.45% SOD CHL 1,000 ML IV SCH (14:27)
[2018-10-05 14:44] LABS: FREE T4 (FREE THYROXINE) 0.96 ng/dL (0.9-1.8); THYROID STIMULATING HORMONE 1.244 uIU/mL (0.350-4.940)
--- NOTE | 2018-10-05 15:25 | Consultation ---
DATE OF CONSULTATION: October 05, 2018 ENDOCRINE CONSULTATION Thank you very much for referring this patient. This is a 72-year-old white female who is referred to me for evaluation of uncontrolled diabetes mellitus. Patient reportedly is a known diabetic for almost 10 to 12 years and she takes a combination of insulin at home. Patient cannot afford insulin and she has not taken any insulin for almost 2 months. She also has history of coronary artery disease, status post stent placement and hypertension. At the time of admission, the blood sugar was 711 and anion gap was 18. Patient was started on insulin drip and IV fluids. PHYSICAL EXAMINATION: GENERAL: The patient is alert, awake, a little bit apprehensive. Slightly dehydrated. VITAL SIGNS: Heart rate is around 100. Her blood pressure 130/80 mmHg. HEENT: Essentially unremarkable. NECK: Thyroid is palpable. Clinically, he is near euthyroid. CHEST: Bilateral vesicular breathing. No rales heard. CARDIAC: Both 1st and 2nd heart sounds. There is no 3rd or 4th heart sound. Ejection sound is grade 2/6. CLINICAL IMPRESSION: 1. Diabetes mellitus type 2, uncontrolled with complications. 2. Noncompliance of medications. 3. Diabetic ketoacidosis. 4. Hypertension. 5. Coronary artery disease. The plan at this time is to taper off the insulin drip. Start on the diet. Patient needs a social service consultation about the coverage of her medications. Thanks for referring this patient. I will be following this patient with you. Job#: [id number] GH MTDD
[2018-10-05] MEDS: GABAPENTIN 100 MG CAP PO SCH (17:39)
[2018-10-05] MEDS: CARVEDILOL 3.125 MG TAB PO SCH (17:39)
[2018-10-05] MEDS: INSULIN LISPRO 100 UNIT/1 ML 3ML VIAL SQ SCH ×4 (17:39→21:17)
[2018-10-05] MEDS ORDERED: INSULIN DETEMIR 100 UNIT/ML PEN SQ SCH (21:00)
[2018-10-05] MEDS ORDERED: TIZANIDINE HCL 4 MG TAB PO PRN (21:00)
[2018-10-05] MEDS: SIMVASTATIN 40 MG TAB PO SCH (21:16)
[2018-10-06] VITALS (10 sets, daily range): BP systolic 129–157; BP diastolic 61–70
[2018-10-06] MEDS: DEXTROSE 5%/0.45% SOD CHL 1,000 ML IV SCH (03:35)
[2018-10-06 05:59] LABS: BASOPHILS % 0.4 % (0.0-1.0); EOSINOPHILS # (AUTO) 0.2 (0.0-0.4); EOSINOPHILS % 2.3 % (0.0-6.0); HEMATOCRIT 36.1 % (34.2-44.1); HEMOGLOBIN 12.4 g/dL (12.0-16.0); LYMPHOCYTES # (AUTO) 1.8 (1.0-3.2); LYMPHOCYTES % 25.3 % (18.0-39.1); MEAN CORPUSCULAR HEMOGLOBIN 29.5 pg (28-32); MEAN CORPUSCULAR HGB CONC 34.3 g/dL (31-35); MONOCYTES # (AUTO) 0.5 (0.2-0.8); MONOCYTES % 6.5 % (4.4-11.3); NEUTROPHILS # (AUTO) 4.6 (2.1-6.9); NEUTROPHILS % 64.9 % (38.7-80.0); PLATELET COUNT 184 x10e3/uL (140-360); RED CELL DISTRIBUTION WIDTH 13.2 % (11.7-14.4)
[2018-10-06 06:21] LABS: ANION GAP 12.8 mmol/L (8-16); BLOOD UREA NITROGEN 10 mg/dL (7-26); BUN/CREATININE RATIO 14 (6-25); CALCIUM 7.8 mg/dL (8.4-10.2); CARBON DIOXIDE 19 mmol/L (22-29); CHLORIDE 106 mmol/L (98-107); CREATININE, SERUM 0.74 mg/dL (0.57-1.11); EST GLOMERULAR FILTRATION RATE > 60 ML/MIN (60-); GLUCOSE 346 mg/dL (74-118); POTASSIUM 3.8 mmol/L (3.5-5.1); SODIUM 134 mmol/L (136-145)
[2018-10-06] MEDS: GABAPENTIN 100 MG CAP PO SCH ×2 (08:30→17:17)
[2018-10-06] MEDS: LISINOPRIL 10 MG TAB PO SCH (08:30)
[2018-10-06] MEDS: SERTRALINE HCL 50 MG TAB PO SCH (08:30)
[2018-10-06] MEDS: CLOPIDOGREL BISULFATE 75 MG TAB PO SCH (08:30)
[2018-10-06] MEDS: INSULIN LISPRO 100 UNIT/1 ML 3ML VIAL SQ SCH ×8 (08:30→21:03)
[2018-10-06] MEDS: NYSTATIN 15 GM POWDER UD BTL TOP SCH ×2 (08:30→17:00)
[2018-10-06] MEDS: CARVEDILOL 3.125 MG TAB PO SCH ×2 (08:30→17:17)
[2018-10-06] MEDS: ISOSORBIDE MONONITRATE 30 MG TAB CR PO SCH (08:30)
[2018-10-06] MEDS ORDERED: ISOSORBIDE MONONITRATE 20 MG TAB PO SCH (09:00)
--- NOTE | 2018-10-06 09:27 | Consultation ---
DATE OF CONSULTATION: October 05, 2018 REASON FOR CONSULTATION: CAD, ICD. CONSULTING PHYSICIAN: Dr. Dom Cannon. HPI: This is a pleasant 72-year-old female that was sent from PCP office due to high blood sugar. According to the patient, she had stopped taking her insulin because she was not able to afford it and has not been able to followup with the PCP or had a refill on her medication. She stated not feeling good. She went in to see the PCP that checked her blood sugar, found out that it was so high and she was sent to the emergency room for further evaluation. She also has a history of CAD with multiple stents and ICD. She does follow up with Dr. Harvey, but has not seen him for over 1 year now. She denied any chest pain, any palpitation, any dizziness, any diaphoresis, or headache. She also stated she had a recent stress test at the PCP office that was normal. PAST MEDICAL HISTORY: Hypertension, uncontrolled diabetes, [place], CVA, gallstones, CAD with ICD. PAST SURGICAL HISTORY: Cardiac stent, right knee surgery, right shoulder surgery, and ICD placement. FAMILY HISTORY: Positive for CAD. SOCIAL HISTORY: No smoking. No drinking. She lives at home with family. MEDICATIONS: See med list. ALLERGIES: SHE IS ALLERGIC TO MULTIPLE MEDS, SEE CHART. REVIEW OF SYSTEMS: Negative except those mentioned above. PHYSICAL EXAMINATION VITAL SIGNS: Temperature 96, heart rate 79, blood pressure 137/70, respirations 18, oxygen saturation 97%. GENERAL: She is awake, alert, and oriented x3. HEENT: Mucous membrane moist. NECK: Supple. LUNGS: Bilateral, clear to auscultation. CARDIOVASCULAR: She is V-paced. ABDOMEN: Soft. NEUROLOGICAL: Intact. EXTREMITIES: With no edema. LABS: Sodium 134, potassium 3.8, chloride 106, CO2 of 19, BUN 10, creatinine 0.74, glucose 346. White blood cells 7.08, hemoglobin 12.4, hematocrit 36.1, platelets 184. IMPRESSION 1. Diabetic ketoacidosis. 2. Coronary artery disease with implantable cardioverter defibrillator. 3. Hypertension. 4. Diabetes, uncontrolled. 5. Hyponatremia. ASSESSMENT AND PLAN 1. She had her ICD interrogated yesterday that showed low battery life. 2. We will go ahead and consult EP, Dr. Douglas, for possible generator change. 1. We will go ahead and get an echocardiogram to reassess the LV and the valve function since she had not followed up with any contact center consultant for the past 1 year. We will continue her home medications. No complaint of chest pain. She had a recent stress test that was normal at the PCP office. Further cardiac workup pending clinical course. Thank you for this consultation. Dictated by: Cara Weaver NP Job#: [id number] RAI
[2018-10-06] MEDS: SIMVASTATIN 40 MG TAB PO SCH (20:54)
[2018-10-06] MEDS: INSULIN DETEMIR 100 UNIT/ML PEN SQ SCH (21:00)
[2018-10-07] VITALS (8 sets, daily range): BP systolic 111–149; BP diastolic 54–77
[2018-10-07] MEDS: INSULIN LISPRO 100 UNIT/1 ML 3ML VIAL SQ SCH ×8 (07:30→21:00)
[2018-10-07] MEDS: MORPHINE SULFATE 2 MG/ML SYR IV PRN ×2 (08:21→15:03)
[2018-10-07] MEDS: CLOPIDOGREL BISULFATE 75 MG TAB PO SCH (08:24)
[2018-10-07] MEDS: CARVEDILOL 3.125 MG TAB PO SCH ×2 (08:24→16:38)
[2018-10-07] MEDS: GABAPENTIN 100 MG CAP PO SCH ×2 (08:24→16:38)
[2018-10-07] MEDS: LISINOPRIL 10 MG TAB PO SCH (08:24)
[2018-10-07] MEDS: SERTRALINE HCL 50 MG TAB PO SCH (08:24)
[2018-10-07] MEDS: ISOSORBIDE MONONITRATE 30 MG TAB CR PO SCH (08:24)
[2018-10-07] MEDS: NYSTATIN 15 GM POWDER UD BTL TOP SCH ×2 (09:00→16:38)
[2018-10-07] MEDS: INSULIN DETEMIR 100 UNIT/ML PEN SQ SCH (21:00)
[2018-10-07] MEDS: SIMVASTATIN 40 MG TAB PO SCH (21:00)
[2018-10-08] VITALS (7 sets, daily range): BP systolic 119–153; BP diastolic 58–67
[2018-10-08] MEDS: MORPHINE SULFATE 2 MG/ML SYR IV PRN ×2 (00:20→20:59)
[2018-10-08] MEDS: INSULIN LISPRO 100 UNIT/1 ML 3ML VIAL SQ SCH ×8 (07:30→20:27)
[2018-10-08] MEDS: CARVEDILOL 3.125 MG TAB PO SCH ×2 (09:00→17:11)
[2018-10-08] MEDS: NYSTATIN 15 GM POWDER UD BTL TOP SCH ×2 (09:00→17:11)
[2018-10-08] MEDS: GABAPENTIN 100 MG CAP PO SCH ×2 (09:00→17:11)
[2018-10-08] MEDS ORDERED: FENTANYL CITRATE/PF 100MCG/2 ML INJ ONE (10:45)
[2018-10-08] MEDS ORDERED: BACITRACIN 50,000 UNIT VIAL ONE (10:45)
[2018-10-08] MEDS ORDERED: MIDAZOLAM HCL 2 MG/2 ML VIAL ONE ×4 (10:45→13:17)
[2018-10-08] MEDS ORDERED: SODIUM CHLORIDE 0.9% 500ML 500 ML ONE (10:46)
[2018-10-08] MEDS ORDERED: LIDOCAINE HCL 2% LOCAL 20 ML VIAL ONE (10:46)
[2018-10-08] MEDS ORDERED: SODIUM CHLORIDE 0.9% 1000ML 2,000 ML ONE (10:46)
[2018-10-08] MEDS ORDERED: VANCOMYCIN 1GM/NS 250 ML 250 ML ONE (10:47)
[2018-10-08] MEDS: VANCOMYCIN 1GM/NS 250 ML 250 ML IV SCH (14:00)
[2018-10-08] MEDS: MORPHINE SULFATE INJ 4 MG/ML INJ IV PRN (14:23)
--- NOTE | 2018-10-08 15:39 | Diagnostic Imaging Report ---
EXAMINATION: CHEST 2 VIEWS INDICATION: Status post AICD lead revision COMPARISON: Chest radiograph 10/04/18. FINDINGS: TUBES and LINES: Left sided AICD with interval revision, with a lead overlying the coronary sinus and three leads overlying the right ventricle. LUNGS: Lungs are moderately inflated. There is no evidence of pneumonia or pulmonary edema. PLEURA: No pleural effusion or pneumothorax. HEART AND MEDIASTINUM: The cardiomediastinal silhouette is unremarkable. Atherosclerotic calcifications of the aortic arch. BONES AND SOFT TISSUES: No acute osseous lesion. Soft tissues are unremarkable. UPPER ABDOMEN: No free air under the diaphragm. IMPRESSION: Interval revision of left sided AICD. No acute radiographic abnormality. No evidence of pneumothorax. Signed by: Dr. Solange Tuttle MD on 10/08/2018 3:36 PM
[2018-10-08] MEDS: SERTRALINE HCL 50 MG TAB PO SCH (17:10)
[2018-10-08] MEDS: ISOSORBIDE MONONITRATE 30 MG TAB CR PO SCH (17:10)
[2018-10-08] MEDS: CLOPIDOGREL BISULFATE 75 MG TAB PO SCH (17:10)
[2018-10-08] MEDS: LISINOPRIL 10 MG TAB PO SCH (17:10)
--- NOTE | 2018-10-08 18:33 | Consultation ---
DATE OF CONSULTATION: October 08, 2018 REFERRING PHYSICIAN: Dr. Torrez. REASON FOR CONSULTATION: Defibrillator at end of service. HISTORY OF PRESENT ILLNESS: This is a 72-year-old woman with history of cardiomyopathy, history of diabetes mellitus, history of biventricular cardiac defibrillator in place that has reached replacement indicator. We were consulted to consider replacement. The patient has history of having a recalled right ventricular lead. It is a [employer] [place] with evidence of high thresholds and impedance changes. REVIEW OF SYSTEMS: CONSTITUTIONAL: Negative. CARDIOVASCULAR: Negative. RESPIRATORY: Negative. GASTROINTESTINAL: Negative. GENITOURINARY: Negative. MUSCULOSKELETAL: Negative. EYES: Negative. The rest of the systems are negative. PAST MEDICAL HISTORY: Cardiomyopathy, diabetes mellitus. PAST SURGICAL HISTORY: Defibrillator. SOCIAL HISTORY: Denies alcohol or illicit drugs. FAMILY HISTORY: No premature coronary artery disease. PHYSICAL EXAMINATION VITAL SIGNS: Blood pressure 146/60, pulse 70, respirations 20, O2 sat 98%. GENERAL: In no acute distress. HEENT: Moist mucous membranes. CARDIOVASCULAR: Regular. RESPIRATORY: Clear. ABDOMEN: Soft and nontender. MUSCULOSKELETAL: 2+ pulses. NEUROLOGIC: No focal deficits. EKG: Sinus rhythm, biventricular paced rhythm. IMPRESSION 1. Biventricular cardiac defibrillator at end of service. 2. Presence of defective right ventricular lead, recalled lead. 3. History of cardiomyopathy. RECOMMENDATIONS: Discussed with the patient in detail. The patient needs a defibrillator replacement and also ventricular lead replacement. This procedure was explained in detail with benefits and risks. The patient voices understanding and wishes to proceed. Will plan for a generator replacement and new right ventricular lead insertion. Thank you for letting us participate in Ms. Aquino' care. Job#: [id number]
--- NOTE | 2018-10-08 19:21 | Operative Report ---
DATE OF PROCEDURE: October 08, 2018 PREPROCEDURE DIAGNOSES 1. Defibrillator at end of replacement indicator, end of service. 2. Biventricular defibrillator in place. 3. Recalled right ventricular lead in place. 4. History of cardiomyopathy. POSTPROCEDURE DIAGNOSES 1. Defibrillator at end of replacement indicator, end of service. 2. Biventricular defibrillator in place. 3. Recalled right ventricular lead in place. 4. History of cardiomyopathy. ESTIMATED BLOOD LOSS: 5 mL. PROCEDURES PERFORMED 1. Biventricular cardiac defibrillator generator replacement. 2. Replacement of right ventricular lead. 3. Moderate sedation. 4. Moderate conscious sedation was provided under my direct supervision by a sedation-trained nurse. Sedation approximate time 30 minutes, Versed and Fentanyl. There were no complications. See sedation form for details. COMPLICATIONS: None. DESCRIPTION OF PROCEDURE: After informed consent was obtained, the patient was brought to the electrophysiology laboratory in a fasting and sedated state. Her chest was prepped and draped in the usual sterile fashion. Moderate sedation and prophylactic antibiotics were given. One percent lidocaine was used as local anesthetic and 3 cm incision was made in the left subclavicular area. Electrocautery, sharp and blunt dissection were used to reach the previous device. This device was freed out of the pocket. Vascular access was obtained x1 in the left axillary vein using the modified Seldinger technique and under fluoroscopic guidance a 9-Khmer sheath was placed. The ventricular lead advanced to the RV apex. R-wave 5, pacing 0.5 at 0.5, impedance 400. The sheath was removed from the body. The lead was secured to fascia using 0 silk. Pocket was irrigated with antibiotic solution using a pulse university counselor. Hemostasis was meticulous. The leads were disconnected from the old device and connected to this new device. An entire new ICD system placed in the pocket. Of note, the old right ventricular lead was cut and was kept in the pocket. The incision was closed using Vicryl and Dermabond. The patient tolerated the procedure well. The procedure was deemed complete. SUMMARY OF HARDWARE IMPLANTED: 1. New defibrillator is [employer], Model #G150, [id number]. 2. New right ventricular lead is [employer], 0292, [id number]. 3. Previous right atrial and left ventricular leads were [employer] normal functioning were used to this new device. IMPRESSION 1. Successful biventricular cardiac defibrillator generator replacement. 2. Successful implantation of a new right ventricular lead. PLAN: 1. Routine postop monitoring on telemetry bed. 2. Follow up in 2 weeks. Job#: [id number] JOAQUIN
[2018-10-08] MEDS: INSULIN DETEMIR 100 UNIT/ML PEN SQ SCH (20:27)
[2018-10-08] MEDS: SIMVASTATIN 40 MG TAB PO SCH (20:30)
[2018-10-08] MEDS: ONDANSETRON HCL INJ 2 MG/ML VIAL IV PRN (20:59)
[2018-10-09] VITALS: BP 166/71
[2018-10-09] MEDS: ONDANSETRON HCL INJ 2 MG/ML VIAL IV PRN (01:30)
[2018-10-09] MEDS: MORPHINE SULFATE INJ 4 MG/ML INJ IV PRN ×3 (01:30→14:01)
[2018-10-09] MEDS: VANCOMYCIN 1GM/NS 250 ML 250 ML IV SCH ×2 (02:00→14:46)
[2018-10-09 04:00] VITALS: BP 139/63
[2018-10-09 07:15] VITALS: BP 142/64
[2018-10-09] MEDS: INSULIN LISPRO 100 UNIT/1 ML 3ML VIAL SQ SCH ×4 (07:30→12:32)
[2018-10-09 08:12] VITALS: BP 142/64
[2018-10-09] MEDS: ISOSORBIDE MONONITRATE 30 MG TAB CR PO SCH (09:27)
[2018-10-09] MEDS: SERTRALINE HCL 50 MG TAB PO SCH (09:27)
[2018-10-09] MEDS: CLOPIDOGREL BISULFATE 75 MG TAB PO SCH (09:27)
[2018-10-09] MEDS: NYSTATIN 15 GM POWDER UD BTL TOP SCH (09:27)
[2018-10-09] MEDS: LISINOPRIL 10 MG TAB PO SCH (09:27)
[2018-10-09] MEDS: CARVEDILOL 3.125 MG TAB PO SCH (09:27)
[2018-10-09] MEDS: GABAPENTIN 100 MG CAP PO SCH (09:27)
[2018-10-09 11:59] VITALS: BP 130/63
--- NOTE | 2018-10-09 12:14 | Discharge Summary ---
PRIMARY CARE PHYSICIAN: Dr. Simeon Marvin. CONSULTANTS 1. Dr. Stan Torrez. 2. Dr. Peter Licea 3. Dr. Antoine Munguia. FINAL DIAGNOSES 1. Status post diabetic ketoacidosis, patient stopped taking her insulin in January when she could not afford copay. 2. Metabolic acidosis, resolved. 3. Left implantable cardioverter defibrillator battery end of life. 4. Status post implantable cardioverter defibrillator generator replacement. 5. Status post dehydration secondary to diabetic ketoacidosis. SUMMARY: A 72-year-old female who came in with blood sugar in the 700, metabolic acidosis with anion gap and dehydration. Patient apparently stopped taking insulin in January because she could not afford the medication. She did not follow up with her family doctor, Dr. Simeon Marvin either. Patient apparently went into DKA, came to the hospital for evaluation. Multiple things were done for the patient, IV fluids, IV insulin drip and subsequently ICD evaluation and she had end of life battery. The patient now status post ICD generator replacement. She is comfortable. She is stable. Insulin giving. The patient's medication prescription was giving too as well. She will resume home medication and insulin prescription giving and discussed with the patient at length. icebox worker also saw the patient. Patient stable discharged home today, follow up with Dr. Simeon Marvin and Dr. Antoine Munguia along with Dr. Stan Torrez as instructed. Job#: [id number] HENRIQUE
[2018-10-09 16:05] VITALS: BP 134/59
[2018-10-09] MEDS ORDERED: INSULIN LISPRO 100 UNIT/1 ML 3ML VIAL SQ SCH (16:30)
[2018-10-09] MEDS ORDERED: INSULIN DETEMIR 100 UNIT/ML PEN SQ SCH (21:00)
== END 2018-10-09 16:46 | disposition home or self-care (01) | DRG 982 ==
LOC: ER 13:37 → ERHOLD 16:57 → IMCU 23:45 → MED/SURG3 10-05 22:08
PROVIDERS: ADMIT Internal Medicine; ATTEND Internal Medicine
PROC: 0JPT0PZ Removal of Cardiac Rhythm Related Device from Trunk Subcutaneous Tissue and Fascia, Open Approach (ICD-10-PCS; principal; 2018-10-08)
PROC: 02PA3MZ Removal of Cardiac Lead from Heart, Percutaneous Approach (ICD-10-PCS; 2018-10-08)
PROC: 0JH608Z Insertion of Defibrillator Generator into Chest Subcutaneous Tissue and Fascia, Open Approach (ICD-10-PCS; 2018-10-08)
PROC: 02HK3KZ Insertion of Defibrillator Lead into Right Ventricle, Percutaneous Approach (ICD-10-PCS; 2018-10-08)
DX: E11.10 Type 2 diabetes mellitus with ketoacidosis without coma (principal); T82.897A Other specified complication of cardiac prosthetic devices, implants and grafts, initial encounter; E87.2 Acidosis; E87.1 Hypo-osmolality and hyponatremia; Z91.14 Patient's other noncompliance with medication regimen; Z79.4 Long term (current) use of insulin; Y71.1 Therapeutic (nonsurgical) and rehabilitative cardiovascular devices associated with adverse incidents; E86.0 Dehydration; T38.3X6A Underdosing of insulin and oral hypoglycemic [antidiabetic] drugs, initial encounter; Z91.120 Patient's intentional underdosing of medication regimen due to financial hardship; I25.10 Atherosclerotic heart disease of native coronary artery without angina pectoris; Z95.5 Presence of coronary angioplasty implant and graft; Z86.73 Personal history of transient ischemic attack (TIA), and cerebral infarction without residual deficits; M19.90 Unspecified osteoarthritis, unspecified site; G89.29 Other chronic pain
CPT/HCPCS: 33216; 33264; 33271; 36415; 71045; 71046; 80048; 80053; 81001; 82150; 82550; 82553; 82948; 83036; 83690; 83735; 84100; 84439; 84443; 84484; 85025; 93005; 93306; 96360; 96366; 99284; C1777; C1882; J2001; J2250; J2270; J2405; J2550; J3370; J7030; J7040; J7050

== ENCOUNTER 2018-10-24 13:53 | Observation (INO) | payer MEDICARE ==
[~2018-10-24] VITALS: Ht 154.9 cm; Wt 75.9 kg
--- OUTSIDE RECORDS SUMMARY | 2018-10-24 13:57 | XMS REPORT | Clinical Summary ---
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 Name Role Phone Tang Marvin MD PCP [...] General Internal Medicine - Encounter 11/19/2017 after 10/23/2017 Immunizations Name Dates Previously Given Next Due [...] MMODE SPECTRAL 12:44 PM CDT COLOR DOPPLER ([id number]) POC GLUCOSE Routine 02/02/2018 11:56 AM CDT [...] PELVIS W STAT 01/06/2018 CONTRAST 5:34 AM [facility] ZZESTIMATED GFR STAT 01/06/2018 3:40 AM [facility] HC COMPLETE BLD COUNT STAT 01/06/2018 W/AUTO DIFF 3:40 AM [facility] LIPASE LEVEL STAT 01/06/2018 3:40 AM [facility] COMPREHENSIVE METABOLIC STAT 01/06/2018 PANEL 3:40 AM [facility] URINALYSIS SCREEN AND STAT 01/06/2018 MICROSCOPY, WITH REFLEX 3:30 AM [facility] TO CULTURE URINE CULTURE STAT 01/06/2018 3:05 AM [facility] POC GLUCOSE Routine 11/19/2017 4:47 PM [facility] WATCH POC GLUCOSE Routine 11/19/2017 11:17 AM [facility] POC GLUCOSE Routine 11/19/2017 7:26 AM [facility] WATCH ZZESTIMATED GFR Timed 11/19/2017 7:04 AM [facility] COMPREHENSIVE METABOLIC Timed 11/19/2017 PANEL 7:04 AM [facility] HC COMPLETE BLD COUNT Timed 11/19/2017 W/AUTO DIFF 7:04 AM G[facility]ATCH TROPONIN Timed 11/19/2017 7:04 AM [facility] ECG 12-LEAD Routine 11/19/2017 6:11 AM G[facility] WATCH TROPONIN Timed 11/19/2017 1:56 AM G[facility] WATCH ECG 12-LEAD Routine 11/18/2017 11:22 PM GATE WATCH TROPONIN Timed 11/18/2017 8:50 PM G[facility] WATCH ECG ED PRELIMINARY Routine 11/18/2017 INTERPRETATION 8:27 PM GATE WATCH ECG 12-LEAD Routine 11/18/2017 7:41 PM GATE WATCH ECHOCARDIOGRAM 2D Routine 11/18/2017 COMPLETE W MMODE SPECTRAL 5:17 PM GATE WATCH COLOR DOPPLER ([id number]) POC GLUCOSE Routine 11/18/2017 4:35 PM GATE WATCH POC GLUCOSE Routine 11/18/2017 11:31 AM GATE WATCH POC GLUCOSE Routine 11/18/2017 7:13 AM [facility]ATCH LIPID PANEL Routine 11/18/2017 6:00 AM G[facility] WATCH TROPONIN Timed 11/18/2017 6:00 AM GATE WATCH POC GLUCOSE Routine 11/18/2017 5:[address] ANGIOGRAM CHEST STAT 11/18/2017 ABDOMEN PELVIS W AND OR 3:36 AM GATE WATCH WITHOUT CONTRAST CT HEAD WO CONTRAST STAT 11/18/2017 3:23 AM [facility]ATCH XR CHEST 2 VW STAT 11/18/2017 1:17 AM G[facility] WATCH HEMOGLOBIN A1C Routine 11/18/2017 1:07 AM GATE WATCH ZZESTIMATED GFR STAT 11/18/2017 1:07 AM GATE WATCH B NATRIURETIC PEPTIDE STAT 11/18/2017 1:07 AM GATE WATCH TROPONIN STAT 11/18/2017 1:07 AM GATE WATCH CREATINE KINASE, TOTAL STAT 11/18/2017 (CPK) 1:07 AM GATE WATCH COMPREHENSIVE METABOLIC STAT 11/18/2017 PANEL 1:07 AM GATE WATCH PROTHROMBIN TIME WITH INR STAT 11/18/2017 1:07 AM [facility] WATCH HC COMPLETE BLD COUNT STAT 11/18/2017 W/AUTO DIFF 1:07 AM GATE WATCH ECG 12-LEAD STAT 11/18/2017 12:14 AM GATE WATCH after 10/23/2017 Results * XR Chest 1 Vw Portable [...] seen. Impression: No active cardiopulmonary disease identified. [facility]-[id number] Procedure Note Hm Interface, Radiology Results Incoming [...] seen. Impression: No active cardiopulmonary disease identified. [facility]-[id number] Performing Organization Address City/[facility] Phone Number [facility] [address] [place] [address] * Estimated GFR (04/21/2018 2:56 AM CDT) Only the most recent of 6 results within the time period is included. GFR Non Af Amer 49 (A) mL/min/1.73 m2 [facility] DEPARTMENT OF PATHOLOGY AND GENOMIC MEDICINE GFR Af Amer 59 (A) mL/min/1.73 m2 [facility] DEPARTMENT OF Comment: PATHOLOGY AND Chronic kidney [...] Americans. Specimen Plasma specimen Performing Organization Address City/[facility]/[place] [address] PATHOLOGY AND [employer] MEDICINE * Partial thromboplastin time, activated (04/21/2018 2:56 AM CDT) Only the most recent of 2 results within the time period is included. PTT 28.0 23.0 - 36.0 sec [facility] DEPARTMENT OF Comment: PATHOLOGY AND PTT therapeutic range for GENOMIC MEDICINE unfractionated heparin is 61.0-112.0 seconds which corresponds to Anti-Xa 0.3-0.7 U/ml. Note:Change in Panic Value The PTT Panic Value is changing from 110 sec. to 100 sec. due to new instrumentation and reagents. Correlation studies have been performed to validate this result. Specimen Blood Performing Organization Address [facility] [place] [address] PATHOLOGY AND [employer] MEDICINE * Prothrombin time with INR (04/21/2018 2:56 AM CDT) Only the most recent of 3 results within the time period is included. Prothrombin time 12.3 12.0 - 15.0 sec [facility] DEPARTMENT OF PATHOLOGY AND [employer] MEDICINE INR 0.91 (L) 0.92 - 1.12 [facility] DEPARTMENT OF Comment: PATHOLOGY AND For patients on anticoagulant GENOMIC MEDICINE therapy, reference ranges below: Indication: INR Value Treatment of Venous Thrombosis, 2.0-3.0 pulmonary emboli, or prophylaxis of a venous thrombosis, or systemic emboli. High dose, high risk patients 3.0-4.5 with mechanical valves. NOTE:INR values over 3.0 are sometimes associated with gastrointestinal hemorrhage, especially values over 4.0. Specimen Blood Performing Organization Address City/[facility] [place] [address] PATHOLOGY AND [employer] MEDICINE * CBC with platelet and differential (04/21/2018 2:56 AM CDT) Only the most recent of 6 results within the time period is included. WBC 8.5 4.2 - 11.0 k/uL [facility] DEPARTMENT OF PATHOLOGY AND GENOMIC MEDICINE RBC 4.30 4.04 - 5.86 m/uL [facility] DEPARTMENT OF PATHOLOGY AND GENOMIC MEDICINE HGB 12.9 11.5 - 15.3 g/dL [facility] DEPARTMENT OF PATHOLOGY AND GENOMIC MEDICINE HCT 37.8 34.0 - 45.0 % [facility] DEPARTMENT OF PATHOLOGY AND GENOMIC MEDICINE MCV 87.9 80.0 - 98.0 fL [facility] DEPARTMENT OF PATHOLOGY AND GENOMIC MEDICINE MCH 30.0 27.0 - 34.0 pg [facility] DEPARTMENT OF PATHOLOGY AND GENOMIC MEDICINE MCHC 34.1 31.5 - 36.5 g/dL [facility] DEPARTMENT OF PATHOLOGY AND GENOMIC MEDICINE RDW - SD 39.0 37.0 - 51.0 fL [facility] DEPARTMENT OF PATHOLOGY AND GENOMIC MEDICINE MPV 10.9 (H) 7.4 - 10.4 fL [facility] DEPARTMENT OF PATHOLOGY AND GENOMIC MEDICINE Platelet count 278 150 - 400 k/uL [facility] DEPARTMENT OF PATHOLOGY AND GENOMIC MEDICINE Nucleated RBC 0.00 /100 WBC [facility] DEPARTMENT OF PATHOLOGY AND GENOMIC MEDICINE Neutrophils 66.4 (H) 36.0 - 66.0 % [facility] DEPARTMENT OF PATHOLOGY AND GENOMIC MEDICINE Lymphocytes 23.7 (L) 24.0 - 44.0 % [facility] DEPARTMENT OF PATHOLOGY AND GENOMIC MEDICINE Monocytes 6.8 (H) 0.0 - 6.0 % [facility] DEPARTMENT OF PATHOLOGY AND GENOMIC MEDICINE Eosinophils 2.1 0.0 - 6.0 % [facility] DEPARTMENT OF PATHOLOGY AND GENOMIC MEDICINE Basophils 0.8 0.0 - 1.2 % [facility] DEPARTMENT OF PATHOLOGY AND GENOMIC MEDICINE Immature granulocytes 0.2 0.0 - 1.0 % [facility] DEPARTMENT OF PATHOLOGY AND GENOMIC MEDICINE Specimen Blood Performing Organization Address City/State/Zipcode Phone Number [place] [address] [place] [address] PATHOLOGY AND GENOMIC MEDICINE * Basic metabolic panel (04/21/2018 2:56 AM CDT) Sodium 132 (L) 135 - 150 mEq/L [facility] DEPARTMENT OF PATHOLOGY AND GENOMIC MEDICINE Potassium 4.2 3.5 - 5.0 mEq/L [facility] DEPARTMENT OF PATHOLOGY AND GENOMIC MEDICINE Chloride 97 (L) 100 - 109 mEq/L [facility] DEPARTMENT OF PATHOLOGY AND GENOMIC MEDICINE CO2 25 24 - 32 mmol/L [facility] DEPARTMENT OF PATHOLOGY AND GENOMIC MEDICINE Anion gap 10@ANIO 7 - 15 mEq/L [facility] DEPARTMENT OF PATHOLOGY AND GENOMIC MEDICINE BUN 24 (H) 7 - 18 mg/dL [facility] DEPARTMENT OF PATHOLOGY AND GENOMIC MEDICINE Creatinine 1.1 0.8 - 1.5 mg/dL [facility] DEPARTMENT OF PATHOLOGY AND GENOMIC MEDICINE Glucose 453 (HH) 65 - 100 mg/dL [facility] DEPARTMENT OF Comment: PATHOLOGY AND Results called to and read [employer] [facility] back by MARCELINA BAIG RN ER AT 03:[id number] BY BALWINDER. Calcium 8.8 8.6 - 10.7 mg/dL [facility] DEPARTMENT OF PATHOLOGY AND GENOMIC MEDICINE Specimen Plasma specimen Performing Organization Address [facility] Phone Number [facility] [address] [place] [address] PATHOLOGY AND GENOMIC MEDICINE * D-dimer (02/03/2018 6:01 PM CDT) D-dimer 0.36 0.00 - 0.40 ug/mL FEU [facility] DEPARTMENT OF Comment: PATHOLOGY AND Units are ug/ml Fibrinogen [facility] MEDICINE Equivalent Unit. When combined with [...] and malignancies. Specimen Blood Performing Organization Address [facility] Phone Number [facility] [address] [place] [address] PATHOLOGY AND GENOMIC MEDICINE * POC glucose (02/03/2018 4:23 PM CDT) Only the most recent of 14 results within the time period is included. POC glucose 174 (H) 65 - 100 mg/dL [facility] DEPARTMENT OF Comment: PATHOLOGY AND Meter ID: [id number] GENOMIC MEDICINE Box Worker: Jenifer Sanchez Performing Organization Address City/State/Zipcode Phone Number [facility] DEPARTMENT OF [address] [place] [address] PATHOLOGY AND [employer] MEDICINE * Troponin (02/03/2018 4:34 AM CDT) Only the most recent of 9 results within the time period is included. Troponin <0.01 0.00 - 0.60 ng/mL [facility] DEPARTMENT OF Comment: PATHOLOGY AND 0.11 - 1.49 GENOMIC MEDICINE ng/mlMay indicate increased risk of acute coronary syndrome. >=1.5 ng/ml Consistent with acute myocardial infarction. The diagnostic value of a single normal or non-diagnostic result is questionable.Serial samples at 2-6 hour intervals are required to rule out acute myocardial injury. Specimen Plasma specimen Performing Organization Address City/[facility] [place] [address] PATHOLOGY AND GENOMIC MEDICINE * T3, free (02/03/2018 4:34 AM CDT) T3, free 2.55 2.18 - 3.98 pmol/L [facility] PATHOLOGY AND [employer] MEDICINE Specimen Plasma specimen Performing Organization Address [facility] [place] [address] PATHOLOGY AND [facility] * Thyroid stimulating hormone (02/03/2018 4:34 AM CDT) TSH 0.96 0.38 - 4.82 uIU/mL [facility] PATHOLOGY AND [employer] MEDICINE Specimen Plasma specimen Performing Organization Address [facility] [place] [address] PATHOLOGY AND [employer] [facility] * B natriuretic peptide (02/03/2018 4:34 AM CDT) Only the most recent of 3 results within the time period is included. BNP 28 0 - 100 pg/mL [facility] OF PATHOLOGY AND GENOMIC MEDICINE Specimen Blood Performing Organization Address [facility] [place] [address] PATHOLOGY AND [employer] MEDICINE * Magnesium level (02/03/2018 4:34 AM CDT) Magnesium 1.90 1.60 - 2.40 mg/dL [facility] PATHOLOGY AND [employer] MEDICINE Specimen Plasma specimen Performing Organization Address [facility] [place] [address] PATHOLOGY AND [employer] MEDICINE * Hemoglobin A1c (02/03/2018 4:34 AM CDT) Only the most recent of 2 results within the time period is included. Hemoglobin A1C 10.2 (H) 4.0 - 6.0 % [facility] DEPARTMENT OF Comment: PATHOLOGY AND [facility] MEDICINE Less than 6% - Goal of therapy for Type II Diabetes Less than 7%-Goal of therapy for Type I Diabetes Less than 8%-Accepta ble control for Type I or Type II Diabetes Greater than 8%-Unacceptabl e control; action indicated. ([id number]) Specimen Blood Performing Organization Address City/[facility]/Zipcode Phone Number [facility] [address] [place] [address] PATHOLOGY AND [employer] MEDICINE * Lipid panel (02/03/2018 4:34 AM CDT) Only the most recent of 2 results within the time period is included. Cholesterol 194 120 - 200 mg/dL [facility] DEPARTMENT OF PATHOLOGY AND [employer] MEDICINE Triglycerides 131 50 - 150 mg/dL [facility] DEPARTMENT OF PATHOLOGY AND [employer] MEDICINE HDL cholesterol 78 (H) 40 - 60 mg/dL [facility] OF PATHOLOGY AND [employer] MEDICINE LDL cholesterol 108Comment: Result obtained by mg/dL [facility] DEPARTMENT OF direct LDL measurement [facility] AND [employer] [facility] Specimen Plasma specimen Performing Organization Address City/[facility] [place] [address] PATHOLOGY AND [employer] [facility] * Comprehensive metabolic panel (02/03/2018 4:34 AM CDT) Only the most recent of 5 results within the time period is included. Sodium 138 135 - 150 mEq/L [facility] DEPARTMENT OF PATHOLOGY AND [employer] MEDICINE Potassium 4.1 3.5 - 5.0 mEq/L [facility] DEPARTMENT OF PATHOLOGY AND [employer] MEDICINE Chloride 104 100 - 109 mEq/L [facility] DEPARTMENT OF PATHOLOGY AND [employer] MEDICINE CO2 26 24 - 32 mmol/L [facility] DEPARTMENT OF PATHOLOGY AND [employer] MEDICINE Anion gap 8 7 - 15 mEq/L [facility] DEPARTMENT OF Comment: PATHOLOGY AND Starting from February [facility] , anion gap calculation no longer incorporates potassium. Please note the change. BUN 19 (H) 7 - 18 mg/dL [facility] DEPARTMENT OF PATHOLOGY AND [employer] MEDICINE Creatinine 0.7 (L) 0.8 - 1.5 mg/dL [facility] DEPARTMENT OF PATHOLOGY AND [employer] MEDICINE Glucose 154 (H) 65 - 100 mg/dL [facility] DEPARTMENT OF PATHOLOGY AND GENOMIC MEDICINE Calcium 9.0 8.6 - 10.7 mg/dL [facility] DEPARTMENT OF PATHOLOGY AND GENOMIC MEDICINE Protein 6.8 6.3 - 8.2 g/dL [facility] DEPARTMENT OF PATHOLOGY AND GENOMIC MEDICINE Albumin 3.2 3.2 - 5.0 g/dL [facility] DEPARTMENT OF PATHOLOGY AND GENOMIC MEDICINE A/G ratio 0.9 0.7 - 3.8 [facility] DEPARTMENT OF PATHOLOGY AND GENOMIC MEDICINE Alkaline phosphatase 137 (H) 30 - 120 U/L [facility] DEPARTMENT OF PATHOLOGY AND GENOMIC MEDICINE AST 12 (L) 15 - 37 U/L [facility] DEPARTMENT OF PATHOLOGY AND GENOMIC MEDICINE ALT 25 (L) 30 - 65 U/L [facility] DEPARTMENT OF PATHOLOGY AND GENOMIC MEDICINE Total bilirubin 0.4 0.2 - 1.2 mg/dL [facility] DEPARTMENT OF PATHOLOGY AND GENOMIC MEDICINE Specimen Plasma specimen Performing Organization Address City/[facility] Phone Number [place] [address] [place] [address] PATHOLOGY AND GENOMIC MEDICINE * CV stress test (02/02/2018 6:39 PM CDT) Resting HR 62 [facility] Resting BP 127 [facility] Peak MET Achieved 1.0 [facility] Protocol Name KELVIN [facility] Time in Exercise Phase 00:01:07 [facility] Max Systolic BP 184 [facility] Max Diastolic BP 79 [facility] Max Heart Rate 86 [facility] Max Predicted Heart Rate 149 [facility] Target HR Formula (220 - Age)*100% [facility] Test Indication Syncope [facility] Arrhy During Ex none [facility] ECG Interp Before EX Normal [facility] ECG Interp During Ex none [facility] Ex Summary Comment Normal stress test [facility] Chest Pain Statement none [facility] Overall HR Response to appropriate [facility] Exercise Overall BP Response To normal resting BP - [facility] Exercise appropriate response Reason for Termination Protocol completed [facility] Stress Test Impression - Performing Organization Address City/State/[facility] Phone Number [facility] [address] [place] [address] * Myocardial perfusion (02/02/2018 6:39 PM CDT) [...] Address City/State/Zipcode Phone Number [facility] [address] [place] [address] * Echocardiogram complete w contrast and 3D [...] Organization Address City/State/Zipcode Phone Number [facility] [address] [place] [address] * ECG 12 lead (02/02/2018 3:15 AM CDT) Only the most recent of 6 results within the time period is included. Ventricular rate 54 [facility] Atrial rate 54 [facility] MD interval 138 [facility] QRSD interval 108 [...] has decreased BY26 BPM- Performing Organization Address [facility] Phone Number [facility] [address] [place] [address] * XR Chest 2 Vw (02/01/2018 9:55 PM CDT) Only the most recent of 2 results within the time period is included. Narrative Performed At EXAMINATION:XR CHEST 2 VW RADIANT CLINICAL HISTORY:Chest Pain COMPARISON:11/18/2017 IMPRESSION: Cardiomediastinal silhouette is within normal limits. Left-sided cardiac device is in place. No consolidations, effusions, or pneumothorax. No acute osseous abnormalities. [facility]-[id number] Procedure Note Hm Interface, Radiology Results Incoming - 02/01/2018 10:01 PM CDT EXAMINATION: XR CHEST 2 VW CLINICAL HISTORY: Chest Pain COMPARISON: 11/18/2017 IMPRESSION: Cardiomediastinal silhouette is within normal limits. Left-sided cardiac device is in place. No consolidations, effusions, or pneumothorax. No acute osseous abnormalities. [facility]-[id number] Performing Organization Address [facility] Phone Number [facility] [address] [place] [address] * ECG ED Preliminary Interpretation - NOT AN ORDER (02/01/2018 9:08 PM CDT) Only the most recent of 2 results within the time period is included. Narrative Performed At Jorden Jaquez MD 02/01/2018 10:09 PM ECG ED Preliminary Interpretation - Not an Order Performed by: JORDEN JAQUEZ Authorized by: JORDEN JAQUEZ ECG reviewed by ED Physician in the absence of a doping supervisor: yes Interpretation: Interpretation: abnormal Rate: ECG rate:80 ECG rate assessment: normal Rhythm: Rhythm: sinus rhythm Ectopy: Ectopy: PVCs PVCs:Frequent QRS: QRS axis:Normal QRS intervals:Normal Conduction: Conduction: normal ST segments: ST segments:Normal T waves: T waves: normal Other findings: Other findings comment:Demand pacemaker with paced beats * CT Abdomen Pelvis W Contrast (01/06/2018 5:34 AM GATE WATCH) Narrative Performed At EXAMINATION:CT ABDOMEN PELVIS W [...] acute osseous abnormalities. CONCLUSION: No emergent findings. [facility]-[id number] Procedure Note Interface, Radiology Results Incoming - 01/06/2018 6:07 AM GATE WATCH EXAMINATION: CT ABDOMEN PELVIS W CONTRAST CLINICAL [...] acute osseous abnormalities. CONCLUSION: No emergent findings. [facility]-[id number] Performing Organization Address City/State/Zipcode Phone Number [place] [address] [place] [address] * Lipase level (01/06/2018 3:40 AM GATE WATCH) Lipase 121 65 - 230 U/L [facility] DEPARTMENT OF PATHOLOGY AND GENOMIC MEDICINE Specimen Plasma specimen Performing Organization Address City/[facility] Phone Number [address] [place] [address] PATHOLOGY AND GENOMIC MEDICINE * Urinalysis screen and microscopy, with reflex to culture (01/06/2018 3:30 AM GATE WATCH) Specimen site Clean catch [facility] DEPARTMENT OF PATHOLOGY AND GENOMIC MEDICINE Color, UA Yellow [facility] DEPARTMENT OF PATHOLOGY AND GENOMIC MEDICINE Appearance, UA Clear [facility] DEPARTMENT OF PATHOLOGY AND GENOMIC MEDICINE Specific gravity, UA 1.021 1.001 - 1.035 [facility] DEPARTMENT OF PATHOLOGY AND GENOMIC MEDICINE pH, UA 5.0 5.0 - 8.5 [facility] DEPARTMENT OF PATHOLOGY AND GENOMIC MEDICINE Protein, UA Negative Negative [facility] DEPARTMENT OF PATHOLOGY AND GENOMIC MEDICINE Glucose, UA Negative Negative [facility] DEPARTMENT OF PATHOLOGY AND GENOMIC MEDICINE Ketones, UA Negative Negative [facility] DEPARTMENT OF PATHOLOGY AND GENOMIC MEDICINE Bilirubin, UA Negative Negative [facility] DEPARTMENT OF PATHOLOGY AND GENOMIC MEDICINE Blood, UA Negative Negative [facility] DEPARTMENT OF PATHOLOGY AND GENOMIC MEDICINE Nitrite, UA Negative Negative [facility] DEPARTMENT OF PATHOLOGY AND GENOMIC MEDICINE Urobilinogen, UA Negative <2.0 [facility] DEPARTMENT OF PATHOLOGY AND GENOMIC MEDICINE Leukocyte esterase, UA Negative Negative [facility] DEPARTMENT OF PATHOLOGY AND GENOMIC MEDICINE Epithelial cells, UA Few /HPF [facility] DEPARTMENT OF PATHOLOGY AND GENOMIC MEDICINE WBC, UA 3 0 - 5 /HPF [facility] DEPARTMENT OF PATHOLOGY AND GENOMIC MEDICINE RBC, UA 1 0 - 5 /HPF [facility] DEPARTMENT OF PATHOLOGY AND GENOMIC MEDICINE Bacteria, UA None seen None seen [facility] DEPARTMENT OF PATHOLOGY AND GENOMIC MEDICINE Yeast, UA None seen [facility] DEPARTMENT OF PATHOLOGY AND GENOMIC MEDICINE Yeast with pseudohyphae, None seen [facility] DEPARTMENT OF PATHOLOGY AND GENOMIC MEDICINE Specimen Urine Performing Organization Address City/[facility]/Zipcode Phone Number [facility] [address] [place] [address] PATHOLOGY AND GENOMIC MEDICINE * Urine culture (01/06/2018 3:05 AM GATE WATCH) Urine culture SEE COMMENTComment: [facility] DEPARTMENT OF Bacteriuria screen negative. PATHOLOGY AND GENOMIC MEDICINE Performing Organization Address City/State/Zipcode Phone Number [facility] DEPARTMENT OF [address] [place] [address] PATHOLOGY AND GENOMIC MEDICINE * Echocardiogram complete w contrast and 3D if needed (11/18/2017 5:17 PM GATE WATCH) Velocity Ratio (V1/V2) 0.64 m/s [facility] [...] Address City/State/Zipcode Phone Number [facility] [address] [place] [address] * CT Angiogram Chest W Contrast Abdomen W Contrast Pelvis W Contrast (11/18/2017 3:36 AM GATE WATCH) Narrative Performed At EXAMINATION:CT ANGIOGRAM CHEST ABDOMEN [...] aneurysm, dissection, or pseudoaneurysm. No emergent findings. [id number] Procedure Note [facility], Radiology Results Incoming - 11/18/2017 4:07 AM GATE WATCH EXAMINATION: CT ANGIOGRAM CHEST ABDOMEN PELVIS W [...] aneurysm, dissection, or pseudoaneurysm. No emergent findings. [facility]-[id number] Performing Organization Address City/State/Zipcode Phone Number [facility] [address] [place] [address] * CT Head Wo Contrast (11/18/2017 3:23 AM GATE WATCH) Narrative Performed At EXAMINATION: CT HEAD [facility]: L sided paresthesiasHTN COMPARISON:10/19/2016 TECHNIQUE: [...] ventricular systems. Conclusion: No acute intracranial abnormalities. [id number] Procedure Note Hm Interface, Radiology Results Incoming - 11/18/2017 3:35 AM GATE WATCH EXAMINATION: CT HEAD WO CONTRAST CLINICAL HISTORY: [...] ventricular systems. Conclusion: No acute intracranial abnormalities. [facility]-[id number] Performing Organization Address City/[facility]/Zipcode Phone Number [facility] [address] [place] [address] * Creatine kinase, total (CPK) (11/18/2017 1:07 AM GATE WATCH) Creatine kinase 31 (L) 61 - 224 U/L [facility] [facility] DEPARTMENT OF PATHOLOGY AND GENOMIC MEDICINE Specimen Plasma specimen Performing Organization Address City/[facility] Cent[facility] Phone Number [facility] DEPARTMENT OF [facility] [place] [address] PATHOLOGY AND GENOMIC MEDICINE after 10/23/2017 Insurance Payer Benefit Subscriber ID Type Phone Address Plan / Group [facility] [id number] Guarantor Name Account Relation to Date of Phone Billing Address Type Patient Makayla Michelle Personal/F Self 1945 [id number] [facility] [address] [place] [address] Advance Directives Patient has advance care planning documents, and code status on file. For more i nformation, please contact: George Rivera [address] [place] [address] Date Inactivated Comments Code Status Date Activated 11/19/2017 9:59 PM Full Code 11/18/2017 7:26 PM Code Status decision reached by: Patient Code Status decision reached by: Patient
[2018-10-24 14:57] LABS: BASOPHILS # (AUTO) 0.1 (0.0-0.1); BASOPHILS % 0.8 % (0.0-1.0); EOSINOPHILS # (AUTO) 0.2 (0.0-0.4); EOSINOPHILS % 2.5 % (0.0-6.0); HEMATOCRIT 39.8 % (34.2-44.1); HEMOGLOBIN 14.2 g/dL (12.0-16.0); LYMPHOCYTES # (AUTO) 2.1 (1.0-3.2); LYMPHOCYTES % 27.1 % (18.0-39.1); MEAN CORPUSCULAR HEMOGLOBIN 29.4 pg (28-32); MEAN CORPUSCULAR HGB CONC 35.7 g/dL (31-35); MEAN CORPUSCULAR VOLUME 82.4 fL (81-99); MONOCYTES # (AUTO) 0.5 (0.2-0.8); MONOCYTES % 6.9 % (4.4-11.3); NEUTROPHILS # (AUTO) 4.8 (2.1-6.9); NEUTROPHILS % 62.3 % (38.7-80.0); PLATELET COUNT 242 x10e3/uL (140-360); RED BLOOD COUNT 4.83 x10e6/uL (3.6-5.1)
--- NOTE | 2018-10-24 15:03 | Diagnostic Imaging Report ---
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 Heart and Mediastinum: No acute cardiomediastinal findings. Aortic vascular calcifications. Lungs and Pleura: No significant pleural effusion, pneumothorax, or focal consolidation. Bones and Soft Tissues: No acute findings. IMPRESSION: 1. No acute cardiopulmonary findings. Signed by: Dr. Gustavo May MD on 10/24/2018 3:00 PM
[2018-10-24] MEDS ORDERED: LEVEMIR SQ (15:11)
[2018-10-24] MEDS ORDERED: PANTOPRAZOLE SO40 MG PO (15:11)
[2018-10-24] MEDS ORDERED: DIPHENHYDRAMINE25 M1 PO (15:11)
[2018-10-24] MEDS ORDERED: IBUPROFEN200 MG PO (15:11)
[2018-10-24] MEDS ORDERED: GLIPIZIDE5 MG PO (15:11)
[2018-10-24] MEDS ORDERED: DICYCLOMINE HCL20 MG PO (15:11)
[2018-10-24 15:29] LABS: ALANINE AMINOTRANSFERASE 9 IU/L (0-55); ALBUMIN 3.9 g/dL (3.5-5.0); ALKALINE PHOSPHATASE 204 IU/L (40-150); ANION GAP 16.1 mmol/L (8-16); BLOOD UREA NITROGEN 11 mg/dL (7-26); BUN/CREATININE RATIO 9 (6-25); CALCIUM 9.3 mg/dL (8.4-10.2); CARBON DIOXIDE 21 mmol/L (22-29); CHLORIDE 95 mmol/L (98-107); CREATINE KINASE 24 IU/L (29-168); CREATININE, SERUM 1.21 mg/dL (0.57-1.11); EST GLOMERULAR FILTRATION RATE 44 ML/MIN (60-); LIPASE 65 U/L (8-78); POTASSIUM 4.1 mmol/L (3.5-5.1); SODIUM 128 mmol/L (136-145)
[2018-10-24 15:32] LABS: GLUCOSE 639 mg/dL (74-118)
[2018-10-24] MEDS ORDERED: INSULIN REGULAR, HUMAN 100 UNIT/1 ML 3ML VIAL ONE (15:45)
[2018-10-24] MEDS ORDERED: SODIUM CHLORIDE 0.9% 1000ML 1,000 ML ONE (15:45)
[2018-10-24] MEDS ORDERED: INSULIN REGULAR, HUMAN 100 UNIT/1 ML 3ML VIAL IV ONE (15:45)
[2018-10-24] MEDS ORDERED: SODIUM CHLORIDE 0.9% 1000ML 1,000 ML IV STA (15:52)
[2018-10-24] MEDS ORDERED: SODIUM CHLORIDE FLUSH 10 ML SYR INJ PRN (16:30)
[2018-10-24] MEDS ORDERED: NITROGLYCERIN 2% OINT 1 GM PKT TOP ONE (17:00)
[2018-10-24] MEDS ORDERED: DEXTROSE 50% SYRINGE 50 ML IV PRN ×2 (17:45→19:15)
[2018-10-24 18:05] VITALS: BP 183/73
--- OUTSIDE RECORDS SUMMARY | 2018-10-24 18:08 | XMS REPORT | Clinical Summary ---
Author Author [facility] Organization [facility] Address Unknown Phone Unavailable Care Team Providers Care Residential Support Worker Name Role Phone Tang Marvin MD PCP [...] MMODE SPECTRAL 12:44 PM CDT COLOR DOPPLER ([id number]) POC GLUCOSE Routine 02/02/2018 11:56 AM CDT [...] PELVIS W STAT 01/06/2018 CONTRAST 5:34 AM ANTIQUE FURNITURE RESTORER ZZESTIMATED GFR STAT 01/06/2018 3:40 AM ANTIQUE FURNITURE RESTORER HC COMPLETE BLD COUNT STAT 01/06/2018 W/AUTO DIFF 3:40 AM ANTIQUE FURNITURE RESTORER LIPASE LEVEL STAT 01/06/2018 3:40 AM ANTIQUE FURNITURE RESTORER COMPREHENSIVE METABOLIC STAT 01/06/2018 PANEL 3:40 AM ANTIQUE FURNITURE RESTORER URINALYSIS SCREEN AND STAT 01/06/2018 MICROSCOPY, WITH REFLEX 3:30 AM ANTIQUE FURNITURE RESTORER TO CULTURE URINE CULTURE STAT 01/06/2018 3:05 AM ANTIQUE FURNITURE RESTORER POC GLUCOSE Routine 11/19/2017 4:47 PM ANTIQUE FURNITURE RESTORER POC GLUCOSE Routine 11/19/2017 11:17 AM ANTIQUE FURNITURE RESTORER POC GLUCOSE Routine 11/19/2017 7:26 AM ANTIQUE FURNITURE RESTORER ZZESTIMATED GFR Timed 11/19/2017 7:04 AM ANTIQUE FURNITURE RESTORER COMPREHENSIVE METABOLIC Timed 11/19/2017 PANEL 7:04 AM ANTIQUE FURNITURE RESTORER HC COMPLETE BLD COUNT Timed 11/19/2017 W/AUTO DIFF 7:04 AM ANTIQUE FURNITURE RESTORER TROPONIN Timed 11/19/2017 7:04 AM ANTIQUE FURNITURE RESTORER ECG 12-LEAD Routine 11/19/2017 6:11 AM ANTIQUE FURNITURE RESTORER TROPONIN Timed 11/19/2017 1:56 AM ANTIQUE FURNITURE RESTORER ECG 12-LEAD Routine 11/18/2017 11:22 PM ANTIQUE FURNITURE RESTORER TROPONIN Timed 11/18/2017 8:50 PM ANTIQUE FURNITURE RESTORER ECG ED PRELIMINARY Routine 11/18/2017 INTERPRETATION 8:27 PM ANTIQUE FURNITURE RESTORER ECG 12-LEAD Routine 11/18/2017 7:41 PM ANTIQUE FURNITURE RESTORER ECHOCARDIOGRAM 2D Routine 11/18/2017 COMPLETE W MMODE SPECTRAL 5:17 PM ANTIQUE FURNITURE RESTORER COLOR DOPPLER ([id number]) POC GLUCOSE Routine 11/18/2017 4:35 PM ANTIQUE FURNITURE RESTORER POC GLUCOSE Routine 11/18/2017 11:31 AM ANTIQUE FURNITURE RESTORER POC GLUCOSE Routine 11/18/2017 7:13 AM ANTIQUE FURNITURE RESTORER LIPID PANEL Routine 11/18/2017 6:00 AM ANTIQUE FURNITURE RESTORER TROPONIN Timed 11/18/2017 6:00 AM ANTIQUE FURNITURE RESTORER POC GLUCOSE Routine 11/18/2017 5:13 AM ANTIQUE FURNITURE [employer]ER CT ANGIOGRAM CHEST STAT 11/18/2017 ABDOMEN PELVIS W AND OR 3:36 AM ANTIQUE FURNITURE RESTORER WITHOUT CONTRAST CT HEAD WO CONTRAST STAT 11/18/2017 3:23 AM ANTIQUE FURNITURE RESTORER XR CHEST 2 VW STAT 11/18/2017 1:17 AM ANTIQUE FURNITURE RESTORER HEMOGLOBIN A1C Routine 11/18/2017 1:07 AM ANTIQUE FURNITURE RESTORER ZZESTIMATED GFR STAT 11/18/2017 1:07 AM ANTIQUE FURNITURE RESTORER B NATRIURETIC PEPTIDE STAT 11/18/2017 1:07 AM ANTIQUE FURNITURE RESTORER TROPONIN STAT 11/18/2017 1:07 AM ANTIQUE FURNITURE RESTORER CREATINE KINASE, TOTAL STAT 11/18/2017 (CPK) 1:07 AM ANTIQUE FURNITURE RESTORER COMPREHENSIVE METABOLIC STAT 11/18/2017 PANEL 1:07 AM ANTIQUE FURNITURE RESTORER PROTHROMBIN TIME WITH INR STAT 11/18/2017 1:07 AM ANTIQUE FURNITURE RESTORER HC COMPLETE BLD COUNT STAT 11/18/2017 W/AUTO DIFF 1:07 AM ANTIQUE FURNITURE RESTORER ECG 12-LEAD STAT 11/18/2017 12:14 AM ANTIQUE FURNITURE RESTORER after 10/23/2017 Results * XR Chest 1 [...] seen. Impression: No active cardiopulmonary disease identified. [facility]-[id number] Procedure Note Hm Interface, Radiology Results Incoming [...] seen. Impression: No active cardiopulmonary disease identified. [facility]-[id number] Performing Organization Address [facility] Phone Number [facility] [address] [place] [address] * Estimated GFR (04/21/2018 2:56 AM CDT) Only the most recent of 6 results within the time period is included. GFR Non Af Amer 49 (A) mL/min/1.73 m2 [facility] DEPARTMENT OF PATHOLOGY AND GENOMIC MEDICINE GFR Af Amer 59 (A) mL/min/1.73 m2 [facility] DEPARTMENT OF Comment: PATHOLOGY [...] Americans. Specimen Plasma specimen Performing Organization Address City/[facility]/[place] [address] PATHOLOGY AND [employer] MEDICINE * Partial thromboplastin time, activated (04/21/2018 2:56 AM CDT) Only the most recent of 2 results within the time period is included. PTT 28.0 23.0 - 36.0 sec [facility] DEPARTMENT OF Comment: PATHOLOGY AND PTT therapeutic range for GENOMIC MEDICINE unfractionated heparin is 61.0-112.0 seconds which corresponds to Anti-Xa 0.3-0.7 U/ml. Note:Change in Panic Value The PTT Panic Value is changing from 110 sec. to 100 sec. due to new instrumentation and reagents. Correlation studies have been performed to validate this result. Specimen Blood Performing Organization Address [facility] [place] [address] PATHOLOGY AND [employer] MEDICINE * Prothrombin time with INR (04/21/2018 2:56 AM CDT) Only the most recent of 3 results within the time period is included. Prothrombin time 12.3 12.0 - 15.0 sec [facility] DEPARTMENT OF PATHOLOGY AND [employer] MEDICINE INR 0.91 (L) 0.92 - 1.12 [facility] DEPARTMENT OF Comment: PATHOLOGY [...] over 4.0. Specimen Blood Performing Organization Address [facility] [place] [place] [address] PATHOLOGY AND [employer] MEDICINE * CBC with platelet and differential (04/21/2018 2:56 AM CDT) Only the most recent of 6 results within the time period is included. WBC 8.5 4.2 - 11.0 k/uL [facility] DEPARTMENT OF PATHOLOGY AND GENOMIC MEDICINE RBC 4.30 4.04 - 5.86 m/uL [facility] DEPARTMENT OF PATHOLOGY AND GENOMIC MEDICINE HGB 12.9 11.5 - 15.3 g/dL [facility] DEPARTMENT OF PATHOLOGY AND GENOMIC MEDICINE HCT 37.8 34.0 - 45.0 % [facility] DEPARTMENT OF PATHOLOGY AND GENOMIC MEDICINE MCV 87.9 80.0 - 98.0 fL [facility] DEPARTMENT OF PATHOLOGY AND GENOMIC MEDICINE MCH 30.0 27.0 - 34.0 pg [facility] DEPARTMENT OF PATHOLOGY AND GENOMIC MEDICINE MCHC 34.1 31.5 - 36.5 g/dL [facility] DEPARTMENT OF PATHOLOGY AND GENOMIC MEDICINE RDW - SD 39.0 37.0 - 51.0 fL [facility] DEPARTMENT OF PATHOLOGY AND GENOMIC MEDICINE MPV 10.9 (H) 7.4 - 10.4 fL [facility] DEPARTMENT OF PATHOLOGY AND GENOMIC MEDICINE Platelet count 278 150 - 400 k/uL [facility] DEPARTMENT OF PATHOLOGY AND GENOMIC MEDICINE Nucleated RBC 0.00 /100 WBC [facility] DEPARTMENT OF PATHOLOGY AND GENOMIC MEDICINE Neutrophils 66.4 (H) 36.0 - 66.0 % [facility] DEPARTMENT OF PATHOLOGY AND GENOMIC MEDICINE Lymphocytes 23.7 (L) 24.0 - 44.0 % [facility] DEPARTMENT OF PATHOLOGY AND GENOMIC MEDICINE Monocytes 6.8 (H) 0.0 - 6.0 % [facility] DEPARTMENT OF PATHOLOGY AND GENOMIC MEDICINE Eosinophils 2.1 0.0 - 6.0 % [facility] DEPARTMENT OF PATHOLOGY AND GENOMIC MEDICINE Basophils 0.8 0.0 - 1.2 % [facility] DEPARTMENT OF PATHOLOGY AND GENOMIC MEDICINE Immature granulocytes 0.2 0.0 - 1.0 % [facility] DEPARTMENT OF PATHOLOGY AND GENOMIC MEDICINE Specimen Blood Performing Organization Address City/State/Zipcode Phone Number [place] [address] [place] [address] PATHOLOGY AND GENOMIC MEDICINE * Basic metabolic panel (04/21/2018 2:56 AM CDT) Sodium 132 (L) 135 - 150 mEq/L [facility] DEPARTMENT OF PATHOLOGY AND GENOMIC MEDICINE Potassium 4.2 3.5 - 5.0 mEq/L [facility] DEPARTMENT OF PATHOLOGY AND GENOMIC MEDICINE Chloride 97 (L) 100 - 109 mEq/L [facility] DEPARTMENT OF PATHOLOGY AND GENOMIC MEDICINE CO2 25 24 - 32 mmol/L [facility] DEPARTMENT OF PATHOLOGY AND GENOMIC MEDICINE Anion gap 10@ANIO 7 - 15 mEq/L [facility] DEPARTMENT OF PATHOLOGY AND GENOMIC MEDICINE BUN 24 (H) 7 - 18 mg/dL [facility] DEPARTMENT OF PATHOLOGY AND GENOMIC MEDICINE Creatinine 1.1 0.8 - 1.5 mg/dL [facility] DEPARTMENT OF PATHOLOGY AND GENOMIC MEDICINE Glucose 453 (HH) 65 - 100 mg/dL [facility] DEPARTMENT OF Comment: PATHOLOGY AND Results called to and read [employer] [facility] back by MARCELINA BAIG RN ER AT 03:3606 BY BALWINDER. Calcium 8.8 8.6 - 10.7 mg/dL [facility] DEPARTMENT OF PATHOLOGY AND GENOMIC MEDICINE Specimen Plasma specimen Performing Organization Address [facility] Phone Number [facility] [address] [place] [address] PATHOLOGY AND GENOMIC MEDICINE * D-dimer (02/03/2018 6:01 PM CDT) D-dimer 0.36 0.00 - 0.40 ug/mL FEU [facility] DEPARTMENT OF Comment: PATHOLOGY AND Units are ug/ml Fibrinogen [facility] MEDIC[facility] Equivalent Unit. When combined with [...] and malignancies. Specimen Blood Performing Organization Address [facility] Phone Number [facility] [address] [place] [address] PATHOLOGY AND GENOMIC MEDICINE * POC glucose (02/03/2018 4:23 PM CDT) Only the most recent of 14 results within the time period is included. POC glucose 174 (H) 65 - 100 mg/dL [facility] DEPARTMENT OF Comment: PATHOLOGY AND Meter ID: [id number] GENOMIC MEDICINE Schedule Announcer: Jenifer Sanchez Performing Organization Address City/State/Zipcode Phone Number [facility] DEPARTMENT OF [address] [place] [address] PATHOLOGY AND [employer] MEDICINE * Troponin (02/03/2018 4:34 AM CDT) Only the most recent of 9 results within the time period is included. Troponin <0.01 0.00 - 0.60 ng/mL [facility] DEPARTMENT OF Comment: PATHOLOGY AND 0.11 - 1.49 GENOMIC MEDICINE ng/mlMay indicate increased risk of acute coronary syndrome. >=1.5 ng/ml Consistent with acute myocardial infarction. The diagnostic value of a single normal or non-diagnostic result is questionable.Serial samples at 2-6 hour intervals are required to rule out acute myocardial injury. Specimen Plasma specimen Performing Organization Address City/[facility] [place] [place] [address] PATHOLOGY AND GENOMIC MEDICINE * T3, free (02/03/2018 4:34 AM CDT) T3, free 2.55 2.18 - 3.98 pmol/L [facility] PATHOLOGY AND [employer] MEDICINE Specimen Plasma specimen Performing Organization Address [facility] [place] [address] PATHOLOGY AND [facility] * Thyroid stimulating hormone (02/03/2018 4:34 AM CDT) TSH 0.96 0.38 - 4.82 uIU/mL [facility] PATHOLOGY AND [employer] MEDICINE Specimen Plasma specimen Performing Organization Address [facility] [place] [address] PATHOLOGY AND [employer] [facility] * B natriuretic peptide (02/03/2018 4:34 AM CDT) Only the most recent of 3 results within the time period is included. BNP 28 0 - 100 pg/mL [facility] OF PATHOLOGY AND GENOMIC MEDICINE Specimen Blood Performing Organization Address [facility] [place] [address] PATHOLOGY AND [employer] MEDICINE * Magnesium level (02/03/2018 4:34 AM CDT) Magnesium 1.90 1.60 - 2.40 mg/dL [facility] PATHOLOGY AND [employer] MEDICINE Specimen Plasma specimen Performing Organization Address [facility] [place] [address] PATHOLOGY AND [employer] MEDICINE * Hemoglobin A1c (02/03/2018 4:34 AM CDT) Only the most recent of 2 results within the time period is included. Hemoglobin A1C 10.2 (H) 4.0 - 6.0 % [facility] DEPARTMENT OF Comment: PATHOLOGY AND [facility] MEDIC[facility] Less than 6% - Goal of therapy for Type II Diabetes Less than 7%-Goal of therapy for Type I Diabetes Less than 8%-Accepta ble control for Type I or Type II Diabetes Greater than 8%-Unacceptabl e control; action indicated. ([id number]) Specimen Blood Performing Organization Address City/[facility]/Zipcode Phone Number [facility] [address] [place] [address] PATHOLOGY AND [employer] MEDICINE * Lipid panel (02/03/2018 4:34 AM CDT) Only the most recent of 2 results within the time period is included. Cholesterol 194 120 - 200 mg/dL [facility] DEPARTMENT OF PATHOLOGY AND [employer] MEDICINE Triglycerides 131 50 - 150 mg/dL [facility] DEPARTMENT OF PATHOLOGY AND [employer] MEDICINE HDL cholesterol 78 (H) 40 - 60 mg/dL [facility] OF PATHOLOGY AND [employer] MEDICINE LDL cholesterol 108Comment: Result obtained by mg/dL [facility] DEPARTMENT OF direct LDL measurement [facility] AND [employer] [facility] Specimen Plasma specimen Performing Organization Address City[facility] [place] [place] [address] PATHOLOGY AND [employer] [facility] * Comprehensive metabolic panel (02/03/2018 4:34 AM CDT) Only the most recent of 5 results within the time period is included. Sodium 138 135 - 150 mEq/L [facility] DEPARTMENT OF PATHOLOGY AND [employer] MEDICINE Potassium 4.1 3.5 - 5.0 mEq/L [facility] DEPARTMENT OF PATHOLOGY AND [employer] MEDICINE Chloride 104 100 - 109 mEq/L [facility] DEPARTMENT OF PATHOLOGY AND [employer] MEDICINE CO2 26 24 - 32 mmol/L [facility] DEPARTMENT OF PATHOLOGY AND [employer] MEDICINE Anion gap 8 7 - 15 mEq/L [facility] DEPARTMENT OF Comment: PATHOLOGY AND Starting from February [facility] , anion gap calculation no longer incorporates potassium. Please note the change. BUN 19 (H) 7 - 18 mg/dL [facility] DEPARTMENT OF PATHOLOGY AND [employer] MEDICINE Creatinine 0.7 (L) 0.8 - 1.5 mg/dL [facility] DEPARTMENT OF PATHOLOGY AND [employer] MEDICINE Glucose 154 (H) 65 - 100 mg/dL [facility] DEPARTMENT OF PATHOLOGY AND GENOMIC MEDICINE Calcium 9.0 8.6 - 10.7 mg/dL [facility] DEPARTMENT OF PATHOLOGY AND GENOMIC MEDICINE Protein 6.8 6.3 - 8.2 g/dL [facility] DEPARTMENT OF PATHOLOGY AND GENOMIC MEDICINE Albumin 3.2 3.2 - 5.0 g/dL [facility] DEPARTMENT OF PATHOLOGY AND GENOMIC MEDICINE A/G ratio 0.9 0.7 - 3.8 [facility] DEPARTMENT OF PATHOLOGY AND GENOMIC MEDICINE Alkaline phosphatase 137 (H) 30 - 120 U/L [facility] DEPARTMENT OF PATHOLOGY AND GENOMIC MEDICINE AST 12 (L) 15 - 37 U/L [facility] DEPARTMENT OF PATHOLOGY AND GENOMIC MEDICINE ALT 25 (L) 30 - 65 U/L [facility] DEPARTMENT OF PATHOLOGY AND GENOMIC MEDICINE Total bilirubin 0.4 0.2 - 1.2 mg/dL [facility] DEPARTMENT OF PATHOLOGY AND GENOMIC MEDICINE Specimen Plasma specimen Performing Organization Address City/[facility] Phone Number [place] [address] [place] [address] PATHOLOGY AND GENOMIC MEDICINE * CV stress test (02/02/2018 6:39 PM CDT) Resting HR 62 [facility] MUSE Resting BP 127 [facility] MUSE Peak MET Achieved 1.0 [facility] MUSE Protocol Name KELVIN [facility]USE Time in Exercise Phase 00:01:07 [facility] Max Systolic BP 184 [facility] Max Diastolic BP 79 [facility] Max Heart Rate 86 [facility] Max Predicted Heart Rate 149 [facility] M[facility] Target HR Formula (220 - Age)*100% [facility] MUSE Test Indication Syncope [facility] MUSE Arrhy During Ex none [facility] MUSE ECG Interp Before EX Normal [facility]USE ECG Interp During Ex none [facility] Ex Summary Comment Normal stress test [facility] MUSE Chest Pain Statement none [facility] Overall HR Response to appropriate [facility] Exercise Overall BP Response To normal resting BP - [facility] Exercise appropriate response Reason for Termination Protocol completed [facility] MUSE Stress Test Impression -Electronically Signed By [facility]USE Armand Zepeda MD ([id number]) on 02/05/2018 1:06:50 PM Performing Organization Address City/State/[facility] Phone Number [facility] MUSE [address] [place] [address] * Myocardial perfusion (02/02/2018 6:39 PM CDT) [...] Address City/State/Zipcode Phone Number [facility] [address] [place] [address] * Echocardiogram complete w contrast and 3D [...] Organization Address City/State/Zipcode Phone Number [facility] [address] [place] [address] * ECG 12 lead (02/02/2018 3:15 AM CDT) Only the most recent of 6 results within the time period is included. Ventricular rate 54 [facility] Atrial rate 54 [facility] [place] interval 138 [facility] QRSD interval 108 [...] has decreased BY26 BPM- Performing Organization Address [facility] Phone Number [facility]USE [address] [place] [address] * XR Chest 2 Vw (02/01/2018 9:55 PM CDT) Only the most recent of 2 results within the time period is included. Narrative Performed At EXAMINATION:XR CHEST 2 VW RADIANT CLINICAL HISTORY:Chest Pain COMPARISON:11/18/2017 IMPRESSION: Cardiomediastinal silhouette is within normal limits. Left-sided cardiac device is in place. No consolidations, effusions, or pneumothorax. No acute osseous abnormalities. [facility]-[id number] Procedure Note Hm Interface, Radiology Results Incoming - 02/01/2018 10:01 PM CDT EXAMINATION: XR CHEST 2 VW CLINICAL HISTORY: Chest Pain COMPARISON: 11/18/2017 IMPRESSION: Cardiomediastinal silhouette is within normal limits. Left-sided cardiac device is in place. No consolidations, effusions, or pneumothorax. No acute osseous abnormalities. [facility]-[id number] Performing Organization Address [facility] Phone Number [facility] [address] [place] [address] * ECG ED Preliminary Interpretation - NOT AN ORDER (02/01/2018 9:08 PM CDT) Only the most recent of 2 results within the time period is included. Narrative Performed At Jorden Jaquez MD 02/01/2018 10:09 PM ECG ED Preliminary Interpretation - Not an Order Performed by: JORDEN JAQUEZ Authorized by: JORDEN JAQUEZ ECG reviewed by ED Physician in the absence of a lifts and cranes inspector: yes Interpretation: Interpretation: abnormal Rate: ECG rate:80 ECG rate assessment: normal Rhythm: Rhythm: sinus rhythm Ectopy: Ectopy: PVCs PVCs:Frequent QRS: QRS axis:Normal QRS intervals:Normal Conduction: Conduction: normal ST segments: ST segments:Normal T waves: T waves: normal Other findings: Other findings comment:Demand pacemaker with paced beats * CT Abdomen Pelvis W Contrast (01/06/2018 5:34 AM ANTIQUE FURNITURE RESTORER) Narrative Performed At EXAMINATION:CT ABDOMEN PELVIS W [...] acute osseous abnormalities. CONCLUSION: No emergent findings. [facility]-[id number] Procedure Note Interface, Radiology Results Incoming - 01/06/2018 6:07 AM ANTIQUE FURNITURE RESTORER EXAMINATION: CT ABDOMEN PELVIS W CONTRAST CLINICAL [...] acute osseous abnormalities. CONCLUSION: No emergent findings. [facility]-[id number] Performing Organization Address City/State/Zipcode Phone Number [place] [address] [place] [address] * Lipase level (01/06/2018 3:40 AM ANTIQUE FURNITURE RESTORER) Lipase 121 65 - 230 U/L [facility] DEPARTMENT OF PATHOLOGY AND GENOMIC MEDICINE Specimen Plasma specimen Performing Organization Address City/[facility] Phone Number [address] [place] [address] PATHOLOGY AND GENOMIC MEDICINE * Urinalysis screen and microscopy, with reflex to culture (01/06/2018 3:30 AM ANTIQUE FURNITURE RESTORER) Specimen site Clean catch [facility] DEPARTMENT OF PATHOLOGY AND GENOMIC MEDICINE Color, UA Yellow [facility] DEPARTMENT OF PATHOLOGY AND GENOMIC MEDICINE Appearance, UA Clear [facility] DEPARTMENT OF PATHOLOGY AND GENOMIC MEDICINE Specific gravity, UA 1.021 1.001 - 1.035 [facility] DEPARTMENT OF PATHOLOGY AND GENOMIC MEDICINE pH, UA 5.0 5.0 - 8.5 [facility] DEPARTMENT OF PATHOLOGY AND GENOMIC MEDICINE Protein, UA Negative Negative [facility] DEPARTMENT OF PATHOLOGY AND GENOMIC MEDICINE Glucose, UA Negative Negative [facility] DEPARTMENT OF PATHOLOGY AND GENOMIC MEDICINE Ketones, UA Negative Negative [facility] DEPARTMENT OF PATHOLOGY AND GENOMIC MEDICINE Bilirubin, UA Negative Negative [facility] DEPARTMENT OF PATHOLOGY AND GENOMIC MEDICINE Blood, UA Negative Negative [facility] DEPARTMENT OF PATHOLOGY AND GENOMIC MEDICINE Nitrite, UA Negative Negative [facility] DEPARTMENT OF PATHOLOGY AND GENOMIC MEDICINE Urobilinogen, UA Negative <2.0 [facility] DEPARTMENT OF PATHOLOGY AND GENOMIC MEDICINE Leukocyte esterase, UA Negative Negative [facility] DEPARTMENT OF PATHOLOGY AND GENOMIC MEDICINE Epithelial cells, UA Few /HPF [facility] DEPARTMENT OF PATHOLOGY AND GENOMIC MEDICINE WBC, UA 3 0 - 5 /HPF [facility] DEPARTMENT OF PATHOLOGY AND GENOMIC MEDICINE RBC, UA 1 0 - 5 /HPF [facility] DEPARTMENT OF PATHOLOGY AND GENOMIC MEDICINE Bacteria, UA None seen None seen [facility] DEPARTMENT OF PATHOLOGY AND GENOMIC MEDICINE Yeast, UA None seen [facility] DEPARTMENT OF PATHOLOGY AND GENOMIC MEDICINE Yeast with pseudohyphae, None seen [facility] DEPARTMENT OF PATHOLOGY AND GENOMIC MEDICINE Specimen Urine Performing Organization Address City/[facility]/Zipcode Phone Number [facility] [address] [place] [address] PATHOLOGY AND GENOMIC MEDICINE * Urine culture (01/06/2018 3:05 AM [employer]TI[employer]ITURE [employer]) Urine culture SEE COMMENTComment: [facility] DEPARTMENT OF Bacteriuria screen negative. PATHOLOGY AND GENOMIC MEDICINE Performing Organization Address City/State/Zipcode Phone Number [facility] DEPARTMENT OF [address] [place] [address] PATHOLOGY AND GENOMIC MEDICINE * Echocardiogram complete w contrast and 3D if needed (11/18/2017 5:17 PM [employer]URE [employer]) Velocity Ratio (V1/V2) 0.64 m/s [facility] [...] Address City/State/Zipcode Phone Number [facility] [address] [place] [address] * CT Angiogram Chest W Contrast Abdomen W Contrast Pelvis W Contrast (11/18/2017 3:36 AM ANTIQUE [employer]URNITURE [employer]ER) Narrative Performed At EXAMINATION:CT ANGIOGRAM CHEST ABDOMEN [...] aneurysm, dissection, or pseudoaneurysm. No emergent findings. [facility]-[id number] Procedure Note [facility], Radiology Results Incoming - 11/18/2017 4:07 AM ANTIQUE FURNITURE [employer]ER EXAMINATION: CT ANGIOGRAM CHEST ABDOMEN PELVIS W [...] aneurysm, dissection, or pseudoaneurysm. No emergent findings. [facility]-[id number] Performing Organization Address City/State/Zipcode Phone Number [facility] [address] [place] [address] * CT Head Wo Contrast (11/18/2017 3:23 AM ANTIQUE [employer]URNITURE [employer]ER) Narrative Performed At EXAMINATION: [facility]: L sided paresthesiasHTN COMPARISON:10/19/2016 [...] ventricular systems. Conclusion: No acute intracranial abnormalities. [facility]-[id number] Procedure Note Hm Interface, Radiology Results Incoming - 11/18/2017 3:35 AM ANTIQUE FURNITURE [employer]ER EXAMINATION: CT HEAD WO CONTRAST CLINICAL HISTORY: [...] ventricular systems. Conclusion: No acute intracranial abnormalities. [facility]-[id number] Performing Organization Address City/[facility]/Zipcode Phone Number [facility] [address] [place] [address] * Creatine kinase, total (CPK) (11/18/2017 1:07 AM ANTIQUE [employer]ITURE [employer]ER) Creatine kinase 31 (L) 61 - 224 U/L [facility] DEPARTMENT OF PATHOLOGY AND GENOMIC MEDICINE Specimen Plasma specimen Performing Organization Address City[facility] Phone Number [facility] DEPARTMENT OF [facility] [place] [address] PATHOLOGY AND GENOMIC MEDICINE after 10/23/2017 Insurance Payer Benefit Subscriber ID Type Phone Address Plan / Group [facility] xxxxxxxx [facility] Guarantor Name Account Relation to Date of Phone Billing Address Type Patient Makayla Michelle Personal/F Self [phone] [facility] [facility] [address] [place] [address] Advance Directives Patient has advance care planning documents, and code status on file. For more i nformation, please contact: George Rivera [address] [place] [address] Date Inactivated Comments Code Status Date Activated 11/19/2017 9:59 PM Full Code 11/18/2017 7:26 PM Code Status decision reached by: Patient Code Status decision reached by: Patient
[2018-10-24 18:28] VITALS: BP 183/73
[2018-10-24] MEDS ORDERED: DICYCLOMINE HCL 20 MG TAB PO PRN (19:15)
[2018-10-24] MEDS: ISOSORBIDE MONONITRATE 30 MG TAB CR PO SCH (19:30)
[2018-10-24] MEDS: LISINOPRIL 20 MG TAB PO SCH (19:30)
[2018-10-24] MEDS: CARVEDILOL 3.125 MG TAB PO SCH (19:30)
[2018-10-24] MEDS: INSULIN LISPRO 100 UNIT/1 ML 3ML VIAL SQ SCH (20:31)
[2018-10-24 20:52] VITALS: BP 130/60
[2018-10-24] MEDS ORDERED: SIMVASTATIN 40 MG TAB PO SCH (21:00)
[2018-10-24] MEDS ORDERED: LEVEMIR 25 UNIT SQ SCH (21:00)
[2018-10-24] MEDS ORDERED: INSULIN DETEMIR 100 UNIT/ML PEN SQ SCH (21:00)
[2018-10-24] MEDS ORDERED: INSULIN REGULAR, HUMAN 100 UNIT/1 ML 3ML VIAL SQ SCH (21:00)
[2018-10-25 00:17] LABS: CREATINE KINASE 20 IU/L (29-168)
[2018-10-25 00:44] VITALS: BP 128/60
[2018-10-25 04:00] VITALS: BP 144/63
[2018-10-25 05:21] LABS: BASOPHILS # (AUTO) 0.1 (0.0-0.1); BASOPHILS % 0.6 % (0.0-1.0); EOSINOPHILS # (AUTO) 0.2 (0.0-0.4); EOSINOPHILS % 2.1 % (0.0-6.0); HEMATOCRIT 35.5 % (34.2-44.1); HEMOGLOBIN 12.6 g/dL (12.0-16.0); LYMPHOCYTES # (AUTO) 2.4 (1.0-3.2); LYMPHOCYTES % 25.8 % (18.0-39.1); MEAN CORPUSCULAR HEMOGLOBIN 29.6 pg (28-32); MEAN CORPUSCULAR HGB CONC 35.5 g/dL (31-35); MEAN CORPUSCULAR VOLUME 83.5 fL (81-99); MONOCYTES # (AUTO) 0.6 (0.2-0.8); MONOCYTES % 5.9 % (4.4-11.3); NEUTROPHILS % 65.1 % (38.7-80.0); PLATELET COUNT 204 x10e3/uL (140-360); RED BLOOD COUNT 4.25 x10e6/uL (3.6-5.1)
[2018-10-25 05:47] LABS: CREATINE KINASE 19 IU/L (29-168)
[2018-10-25 06:09] LABS: ANION GAP 14.9 mmol/L (8-16); BLOOD UREA NITROGEN 9 mg/dL (7-26); BUN/CREATININE RATIO 12 (6-25); CALCIUM 8.7 mg/dL (8.4-10.2); CARBON DIOXIDE 19 mmol/L (22-29); CHLORIDE 102 mmol/L (98-107); CHOL/HDL RATIO 2.8 (3.0-3.6); CHOLESTEROL 151 MD/DL (0-199); CREATININE, SERUM 0.74 mg/dL (0.57-1.11); EST GLOMERULAR FILTRATION RATE > 60 ML/MIN (60-); GLUCOSE 300 mg/dL (74-118); HDL CHOLESTEROL 53 MG/DL (40-60); LDL CHOLESTEROL 78 MG/DL (60-130); POTASSIUM 3.9 mmol/L (3.5-5.1); SODIUM 132 mmol/L (136-145); TRIGLYCERIDES 98 MG/DL (0-149)
[2018-10-25] MEDS ORDERED: GLIPIZIDE 5 MG TAB PO SCH (07:30)
[2018-10-25] MEDS: INSULIN LISPRO 100 UNIT/1 ML 3ML VIAL SQ SCH (08:00)
[2018-10-25] MEDS ORDERED: METFORMIN HCL 500 MG TAB PO SCH (08:00)
[2018-10-25] MEDS ORDERED: NON-FORMULARY MEDICATION (Metformin Hcl 1,000 MG) PO SCH (08:00)
[2018-10-25 08:12] VITALS: BP 169/70
[2018-10-25] MEDS: ISOSORBIDE MONONITRATE 30 MG TAB CR PO SCH (08:28)
[2018-10-25] MEDS: LISINOPRIL 20 MG TAB PO SCH (08:28)
[2018-10-25] MEDS: CARVEDILOL 3.125 MG TAB PO SCH (08:28)
[2018-10-25 09:00] VITALS: BP 131/59
[2018-10-25] MEDS ORDERED: ISOSORBIDE MONONITRATE 20 MG TAB PO SCH (09:00)
[2018-10-25] MEDS ORDERED: PANTOPRAZOLE SOD 40 MG TABEC PO SCH (09:00)
[2018-10-25] MEDS ORDERED: LISINOPRIL 10 MG TAB PO SCH (09:00)
[2018-10-25] MEDS ORDERED: CLOPIDOGREL BISULFATE 75 MG TAB PO SCH (09:00)
[2018-10-25] MEDS ORDERED: SERTRALINE HCL 50 MG TAB PO SCH (09:00)
[2018-10-25] MEDS ORDERED: GABAPENTIN 100 MG CAP PO SCH (09:00)
[2018-10-25] MEDS ORDERED: INSULIN DETEMIR 100 UNIT/ML PEN SQ ONE (10:15)
[2018-10-25] MEDS ORDERED: INSULIN REGULAR, HUMAN 100 UNIT/1 ML 3ML VIAL SQ ONE (10:15)
[2018-10-25 10:32] VITALS: BP 131/59
[2018-10-25 10:56] VITALS: BP 131/59
--- NOTE | 2018-10-25 18:58 | History and Physical ---
Patient placed on observation. Observation date is October 24, 2018. CHIEF COMPLAINT: Uncontrolled diabetes with not taking insulin at home. HISTORY: This is a 72-year-old female, apparently did not take her insulin at home. The patient is only having Levemir. She is supposed to have short-acting Humalog insulin, but she did not take it. She came to see her primary care physician, Dr. Simeon Marvin, and blood work showed that the patient's blood sugar was over 500. The patient was brought into the hospital. Here, the patient received insulin treatment. Her blood sugar came down to be 200. The patient is, otherwise, stable. PAST MEDICAL HISTORY: Please review previous recent hospitalization. SOCIAL HISTORY: Patient does not smoke or use alcohol. No recreational drugs. ALLERGIES: NO KNOWN ALLERGIES. HOME MEDICATION: List reviewed. REVIEW OF SYSTEMS: High blood sugar. PHYSICAL EXAMINATION: Otherwise unremarkable. LAB WORK: The patient does have a blood sugar in the 400-500. PLAN: Continue with insulin treatment. The patient may have her home medication, Levemir insulin and Humalog insulin prior to her discharge. Of note, the patient's insulin has been called in by her family physician, Dr. Simeon Marvin. The patient is stable. She will be discharged home today. Resume home medications. Continue her insulin at home. The patient is very knowledgeable about her diabetes and her insulin treatment. The problem with the patient is that she is noncompliant due to financial restraint due to her medication . This has been discussed previously on her last admission. Job#: [id number] CQ
--- NOTE | 2018-10-25 19:03 | Discharge Summary ---
Please review my brief history and physical. The patient will discharge home today. Instructions for the patient to increase her insulin at home. Taking insulin that will be called in by her family physician, Dr. Simeon Marvin. The patient is noncompliant with insulin treatment. She does have diabetes, type 2, requiring insulin. Her last admission here was because she ran out of her insulin and did not afford insulin for months. The patient's medication was at home. However, at this time, the patient does have Levemir. She does have a prescription of short-acting insulin, waiting for the patient to tile picker at the pharmacy. The patient will receive insulin injections both short-acting and long-acting insulin on the schedule as planned. The patient will discharge home today. Resume home medication. Job#: [id number]
== END 2018-10-25 10:46 | disposition home or self-care (01) ==
LOC: ER 13:53 → ERHOLD 18:04 → IMCU 18:08
PROVIDERS: ADMIT Internal Medicine; ATTEND Internal Medicine
DX: E11.65 Type 2 diabetes mellitus with hyperglycemia (principal); Z79.4 Long term (current) use of insulin; T38.3X6A Underdosing of insulin and oral hypoglycemic [antidiabetic] drugs, initial encounter; Z91.120 Patient's intentional underdosing of medication regimen due to financial hardship; Z88.8 Allergy status to other drugs, medicaments and biological substances; Z88.6 Allergy status to analgesic agent; Z91.040 Latex allergy status
CPT/HCPCS: 36415 ×2; 71045; 80048; 80053; 80061; 82550 ×2; 82553 ×2; 82948 ×2; 83690; 84484 ×2; 85025 ×2; 93005; 96372; 99284; G0378 ×2; J1817; J7030; S0164

== ENCOUNTER → 2020-04-07 | Outpatient (CLI) | payer MEDICARE ==
[~2020-04-07] MED LIST changes: +DICYCLOMINE HCL20 MG PO; +DIPHENHYDRAMINE25 M1 PO; +GLIPIZIDE5 MG PO; +IBUPROFEN200 MG PO; +LEVEMIR SQ; +PANTOPRAZOLE SO40 MG PO
--- NOTE | 2020-04-07 13:41 | Diagnostic Imaging Report ---
TECHNIQUE: 2 views of left shoulder HISTORY: ^[id number] ^1220 ^LEFT SHOULDER PAIN. COMPARISON: None. IMPRESSION: No acute displaced fracture or dislocation. Joint spaces are within normal limits. Soft tissues are grossly unremarkable. Signed by: Sami Rhodes MD on 04/07/2020 1:38 PM
== END ==
LOC: RAD 12:21
PROVIDERS: ATTEND Internal Medicine
DX: M25.512 Pain in left shoulder (principal)

== ENCOUNTER 2023-09-13 03:51 | Emergency (ER) | payer MEDICARE ==
[~2023-09-13] VITALS: Ht 154.9 cm; Wt 75.7 kg
[2023-09-13] MEDS ORDERED: ONDANSETRON HCL INJ 2MG/ML 2ML 2 MG/ML VIAL IV STA (04:06)
[2023-09-13] MEDS ORDERED: HYDRALAZINE HCL 20 MG/ML VIAL IV STA (04:16)
[2023-09-13 04:31] LABS: BASOPHILS # (AUTO) 0.1 (0.0-0.1); BASOPHILS % 0.9 % (0.0-1.0); EOSINOPHILS # (AUTO) 0.2 (0.0-0.4); EOSINOPHILS % 1.7 % (0.0-6.0); HEMATOCRIT 33.8 % (34.2-44.1); LYMPHOCYTES # (AUTO) 2.1 (1.0-3.2); LYMPHOCYTES % 20.3 % (18.0-39.1); MEAN CORPUSCULAR HEMOGLOBIN 24.2 pg (28-32); MEAN CORPUSCULAR HGB CONC 32.5 g/dL (31-35); MEAN CORPUSCULAR VOLUME 74.4 fL (81-99); MONOCYTES # (AUTO) 0.6 (0.2-0.8); MONOCYTES % 6.2 % (4.4-11.3); NEUTROPHILS # (AUTO) 7.3 (2.1-6.9); NEUTROPHILS % 70.5 % (38.7-80.0); PLATELET COUNT 342 x10e3/uL (140-360); RED BLOOD COUNT 4.54 x10e6/uL (3.6-5.1); WHITE BLOOD COUNT 10.37 x10e3/uL (4.8-10.8)
[2023-09-13 04:46] LABS: CLARITY,URINE CLOUDY (CLEAR); COLOR,URINE YELLOW (YELLOW); KETONES,URINE NEGATIVE (NEGATIVE); LEUKOCYTE ESTERASE ,URINE SMALL (NEGATIVE); NITRITE,URINE POSITIVE (NEGATIVE); PROTEIN,URINE DIPSTICK >=300 (NEGATIVE); URINE UROBILINOGEN 0.2 mg/dL (0.2 - 1)
[2023-09-13 04:47] LABS: ALBUMIN 3.7 g/dL (3.5-5.0); ALBUMIN/GLOBULIN RATIO 0.8 (0.8-2.0); ANION GAP 14.8 mmol/L (8-16); CALCIUM 9.5 mg/dL (8.4-10.2); CREATININE, SERUM 1.11 mg/dL (0.57-1.11); POTASSIUM 3.8 mmol/L (3.5-5.1)
[2023-09-13 04:52] LABS: BACTERIA,URINE MANY /HPF; EPITHELIAL CELLS,URINE FEW /LPF; RENAL EPITHELIAL CELLS,URINE FEW; TRANSITIONAL EPI CELLS,URINE FEW; WBC,URINE (MAN) >50 /HPF (0-5)
[2023-09-13] MEDS ORDERED: IOPAMIDOL 370 MG/ML 100 ML INFUS..BTL INJ ONE (05:26)
[2023-09-13] MEDS ORDERED: ONDANSETRON ODT4 MG SL (05:38)
[2023-09-13] MEDS ORDERED: PANTOPRAZOLE SO40 MG PO (05:38)
[2023-09-13] MEDS ORDERED: CEFDINIR300 MG PO (05:38)
[2023-09-13 06:05] VITALS: BP 164/54; PULSE 82; RESP 17; TEMP 98.1; O2SAT 100
== END 2023-09-13 06:31 | disposition home or self-care (01) ==
LOC: ER 03:58
DX: R10.10 Upper abdominal pain, unspecified (principal); N39.0 Urinary tract infection, site not specified; R11.2 Nausea with vomiting, unspecified; R94.31 Abnormal electrocardiogram [ECG] [EKG]
CPT/HCPCS: 36415; 74177; 80053; 81001; 83690; 84484; 85025; 87086; 87186; 93005; 99284; C9113; J0360; J0696; J2405; Q9967

== ENCOUNTER 2024-04-03 19:31 | Emergency (ER) | payer MEDICARE ==
[~2024-04-03] VITALS: Ht 154.9 cm; Wt 75.7 kg
[~2024-04-03 19:31] MED LIST changes: +CEFDINIR300 MG PO; +ONDANSETRON ODT4 MG SL
[2024-04-03 20:05] LABS: BASOPHILS # (AUTO) 0.1 (0.0-0.1); BASOPHILS % 1.2 % (0.0-1.0); EOSINOPHILS # (AUTO) 0.3 (0.0-0.4); EOSINOPHILS % 2.5 % (0.0-6.0); HEMOGLOBIN 9.5 g/dL (12.0-16.0); LYMPHOCYTES # (AUTO) 1.8 (1.0-3.2); LYMPHOCYTES % 17.7 % (18.0-39.1); MEAN CORPUSCULAR HEMOGLOBIN 20.5 pg (28-32); MEAN CORPUSCULAR HGB CONC 30.6 g/dL (31-35); MEAN CORPUSCULAR VOLUME 66.8 fL (81-99); MONOCYTES # (AUTO) 0.7 (0.2-0.8); MONOCYTES % 6.6 % (4.4-11.3); NEUTROPHILS # (AUTO) 7.5 (2.1-6.9); NEUTROPHILS % 71.8 % (38.7-80.0); PLATELET COUNT 328 x10e3/uL (140-360); RED BLOOD COUNT 4.64 x10e6/uL (3.6-5.1); RED CELL DISTRIBUTION WIDTH 20.3 % (11.7-14.4); WHITE BLOOD COUNT 10.38 x10e3/uL (4.8-10.8)
[2024-04-03] MEDS: SODIUM CHLORIDE 0.9% 1000ML 1,000 ML IV STA ×2 (20:07→21:58)
[2024-04-03 20:25] LABS: ALBUMIN 3.6 g/dL (3.5-5.0); ALBUMIN/GLOBULIN RATIO 0.8 (0.8-2.0); ANION GAP 15.3 mmol/L (8-16); BILIRUBIN,TOTAL 0.6 mg/dL (0.2-1.2); CALCIUM 9.1 mg/dL (8.4-10.2); CREATININE, SERUM 1.2 mg/dL (0.57-1.11); POTASSIUM 4.3 mmol/L (3.5-5.1); TOTAL PROTEIN 8.1 g/dL (6.5-8.1)
[2024-04-03 20:32] LABS: TROPONIN I 0.02 ng/mL (0-0.300)
[2024-04-03] MEDS ORDERED: IOPAMIDOL 370 MG/ML 100 ML INFUS..BTL INJ ONE (20:50)
[2024-04-03 21:27] LABS: BILIRUBIN,URINE NEGATIVE (NEGATIVE); CLARITY,URINE SL CLOUDY (CLEAR); COLOR,URINE YELLOW (YELLOW); GLUCOSE, URINE 500 (NEGATIVE); KETONES,URINE NEGATIVE (NEGATIVE); LEUKOCYTE ESTERASE ,URINE NEGATIVE (NEGATIVE); NITRITE,URINE NEGATIVE (NEGATIVE); PH,URINE 7 (5 - 7); PROTEIN,URINE DIPSTICK 1+ (NEGATIVE); URINE UROBILINOGEN 0.2 mg/dL (0.2 - 1)
[2024-04-03 21:40] LABS: EPITHELIAL CELLS,URINE RARE /LPF
[2024-04-03] MEDS: INSULIN REGULAR, HUMAN 100 UNIT/1 ML IV ONE (21:59)
[2024-04-03] MEDS: ACETAMINOPHEN 325 MG TAB PO ONE (23:14)
[2024-04-03] MEDS: DICYCLOMINE HCL 20 MG/2 ML VIAL IM ONE (23:14)
[2024-04-03] MEDS ORDERED: REGLAN5 MG PO (23:52)
[2024-04-04 00:27] VITALS: O2SAT 99
== END 2024-04-04 00:05 | disposition home or self-care (01) ==
LOC: ER 20:03
DX: R10.30 Lower abdominal pain, unspecified (principal); E11.65 Type 2 diabetes mellitus with hyperglycemia; I10 Essential (primary) hypertension; J44.9 Chronic obstructive pulmonary disease, unspecified; E78.5 Hyperlipidemia, unspecified; Z11.52 Encounter for screening for COVID-19; R94.31 Abnormal electrocardiogram [ECG] [EKG]; I25.2 Old myocardial infarction; Z95.810 Presence of automatic (implantable) cardiac defibrillator
CPT/HCPCS: 36415; 74177; 80053; 81001; 82550; 82948; 83690; 84484; 85025; 93005; 99284; J0500; J7030; Q9967; U0002